=== PATIENT | male | born 1945 | race Caucasian/White ===

== ENCOUNTER 2023-11-07 11:17 | Outpatient (RCR) | payer MEDICARE, SELFPAY | END 2023-11-07 23:59 | disposition home or self-care (01) | LOC: CRHB 11:17 | PROVIDERS: ATTENDING PHYSICIAN Internal Medicine Cardiovascular Disease | DX: I25.10 Atherosclerotic heart disease of native coronary artery without angina pectoris (principal); Z95.5 Presence of coronary angioplasty implant and graft; I25.2 Old myocardial infarction | CPT/HCPCS: G0422; G0423 ==

== ENCOUNTER → 2023-11-12 15:59 | Outpatient (REF) | payer MEDICARE, SELFPAY | LOC: DHCBS HW 15:59 | PROVIDERS: ATTENDING PHYSICIAN Internal Medicine Cardiovascular Disease; FAMILY PHYSICIAN Family Medicine | DX: I25.10 Atherosclerotic heart disease of native coronary artery without angina pectoris (principal) | CPT/HCPCS: 93306 ==

== ENCOUNTER 2023-11-30 10:11 | Outpatient (RCR) | payer MEDICARE, SELFPAY | END 2023-11-30 23:59 | disposition home or self-care (01) | LOC: CRHB 10:11 | PROVIDERS: ATTENDING PHYSICIAN Internal Medicine Cardiovascular Disease; FAMILY PHYSICIAN Family Medicine | DX: I25.10 Atherosclerotic heart disease of native coronary artery without angina pectoris (principal); I25.2 Old myocardial infarction; Z95.5 Presence of coronary angioplasty implant and graft | CPT/HCPCS: G0422; G0423 ==

== ENCOUNTER 2024-03-20 18:50 | Emergency (ER) | payer MEDICARE, SELFPAY ==
[2024-03-20 18:50] VITALS: BMI 22.7
[2024-03-20 18:55] VITALS: BP 137/70
[2024-03-20 20:08] VITALS: BP 148/72
[2024-03-20 20:29] LABS: % Basophils 0.7 % (0-2); % Eosinophils 2.3 % (0-6); % Immature Granulocytes 0.1 % (0-0.5); % Lymphocytes 14.8 % (20.5-51.1); % Monocytes 9.7 % (1.7-9.3); % Neutrophils 72.4 % (42.2-75.2); Absolute Basophils 0.1 10^3/uL (0-0.2); Absolute Eosinophils 0.2 10^3/uL (0-0.7); Absolute Lymphocytes 1.4 10^3/uL (1.2-3.4); Absolute Monocytes 0.9 10^3/uL (0.1-0.6); Absolute Neutrophils 6.6 10^3/uL (1.4-6.5); Hematocrit 42.6 % (39.0-52.0); Mean Corp Hgb Conc. 35.2 g/dL (33.0-37.0); Mean Corpuscular Hgb 31.8 pg (27.0-31.0); Mean Corpuscular Volume 90.3 fL (80.0-94.0); Mean Platelet Volume 10.1 fL (7.4-10.4); Nucleated Red Blood Cells % 0 % (-); Platelet Count 208 10^3/uL (130-400); Red Blood Cell Count 4.72 10^6/uL (4.70-6.10); Red Cell Dist. Width 12.5 % (11.5-14.5); White Blood Cell Count 9.2 10^3/uL (4.8-10.8)
[2024-03-20 20:48] LABS: ALT (SGPT) 24 U/L (0-50); AST (SGOT) 33 U/L (17-59); Albumin 4.7 g/dl (3.5-5.0); Alkaline Phosphatase 73 U/L (38-126); Blood Urea Nitrogen 21 mg/dl (9-20); Calcium 9.8 mg/dl (8.4-10.2); Carbon Dioxide 25 mmol/L (22-30); Chloride 104 mmol/L (98-107); Estimated Creatinine Clearance 59 ml/min; Glucose 94 mg/dl (70-99); Sodium 136 mmol/L (135-145); Total Bilirubin 0.6 mg/dl (0.2-1.3); Total Protein 7.3 g/dl (6.3-8.2); eGFR > 60.00
[2024-03-20 21:00] VITALS: BP 130/78
--- NOTE | 2024-03-20 21:57 | ED.GENMED ---
History of Present Illness
General
Chief Complaint: Headache
Source: patient
Exam Limitations: none
Time Seen by Provider: 03/20/24 21:38
Travel History
Have you had any contact with someone who has COVID-19?: No
Do you have any symptoms of coronavirus? Fever > 100 degrees, chills, cough, shortness of breath, sore throat, loss of taste or smell, muscle aches, or headache?: No
History of Present Illness
History of Present Illness:
This is a 78 year old male that comes in with c/o headache. States that on Sunday night he awoke with this cramp pain in the left arm. State that every time he would stretch the arm out it would pull right back. States that it was like a cramp.
States that he got up to the [place] and the cramp went away. State that he had no muscle soreness in the morning and the cramp or pain has never returned. State that he has a left sided headache that goes form the forehead to the left sided of the head
in the front and he has pressure feeling in the eye. States that this has been going on since Sunday. States that at first he thought is was his sinuses as he was in [place] and the pollen there was terrible. States that this cleared up after he
got home and he has been using his [place] pot. States that the pain from his head goes down to the left ear like he has an ear ache and when he opens his jaw he feels this discomfort. States that the headache pain has been constand but the Intensity
changes. Denies any fever, chills, chest pain, SOB, abd pain, nausea, vomiting, diarrhea, dizziness, urinary burning.
Past History
Past History
ED Past Medical History: Arrthythmia (a fib), CAD, Cancer (Basal cell), HTN and [place]
ED Past Surgical History: Appendectomy, Cardiac (Stents X 2), Orthopedic (Right rotator cuff, Back surgery, ), Tonsilectomy, Urological (Spermatocele) and Other (right femural artery repair)
Social History
Tobacco: Former smoker
Alcohol: None
Personal:
Living: with family
Review of Systems
Review of Systems
All Other Systems: ROS reviewed and negative except as documented in HPI and ROS
Constitutional: Reports no symptoms; Denies fever or chills
EENT: Reports no symptoms
Respiratory: Reports no symptoms; Denies cough or trouble breathing
Cardiac: Reports no symptoms; Denies chest pain
ABD/GI: Reports no symptoms; Denies abdominal pain, nausea, vomiting or diarrhea
: Reports no symptoms; Denies dysuria, frequency or urgency
Musculoskeletal: Reports other (left arm pain that has not returned since Sunday. )
Skin: Reports no symptoms
Neurological: Reports headache; Denies dizzy
Psychiatric: Reports no symptoms
Phy Exam
General Physical Exam
General Presentation: well appearing and no apparent distress
General age: appears stated age
General Skin: warm and dry
General Habitus: normal
General Mental: alert
General Hydration: appears well hydrated
ENT Exam
ENT Exam: TM's normal, pharynx normal and neck supple
Eye Exam
Eye Exam: EOMI
Cardiovascular Exam
Cardiovascular Exam: regular rate/rhythm, no edema and normal peripheral pulses
Pulmonary Exam
Pulmonary Exam: lungs clear, no respiratory distress, no rales, chest non tender, no crackles, no rhonchi, no wheezing and no cough
Gastrointestinal Exam
Gastrointestinal Exam: normal bowel sounds, non tender, soft, no organomegaly, no pulsatile mass and non distended
Musculoskeletal Exam
Musculoskeletal Exam: full ROM, no edema and other (Hand grasp equal)
Skin Exam
Skin Exam: normal color, warm/dry, no rash and no petechia
Psychiatric Exam
Psychiatric Exam: normal mood/affect
Course
Orders/Labs/Results
Orders:
Orders
03/20/24 20:21
C-Reactive Protein Urgent
Comment: ADD ON
CBC/With Diff [Complete Blood Count/With Diff] Urgent
CMP [Comprehensive Metabolic Panel] Urgent
Erythrocyte Sed Rate Urgent
Comment: ADD ON
03/20/24 21:55
Electrocardiogram (*1) Urgent
Reason for Study: Other
Other Reason for Exam: LEFT ARM PAIN
CT Head W/o Iv Contrast Urgent
Comment:
Reason For Exam: lEFT HEAD PAIN
EKG- Treatment ONCE
0.9% Sodium Chloride 1000 ml [Nss] 1,000 ml IV BOLUS
Acetaminophen [Tylenol] 1,000 mg PO NOW STA
Dexamethasone Sod Phosphate [Decadron] 20 mg IV NOW STA
03/20/24 22:06
Add On- LAB Urgent
Tests Added?: Sed rate, CRP
03/20/24 22:15
Troponin I Urgent
Abnormal Lab Results
03/20/24
20:21
MCH 31.8 H pg
(27.0-31.0)
Absolute Neuts (auto) 6.6 H 10^3/uL
(1.4-6.5)
Absolute Monos (auto) 0.9 H 10^3/uL
(0.1-0.6)
Lymphocytes % 14.8 L %
(20.5-51.1)
Monocytes % 9.7 H %
(1.7-9.3)
BUN 21 H mg/dl
(9-20)
03/20/24 20:21
03/20/24 20:21
Dehydration. sed rate normal at 13, Troponin <0.012, CRP normal <5.0
Vital Signs
Initial and Last Documented VS:
Initial Vital Signs
Temp Pulse Resp BP Pulse Ox
98.2 F 67 18 137/70 98
03/20/24 18:55 03/20/24 18:55 03/20/24 18:55 03/20/24 18:55 03/20/24 18:55
Last Documented Vital Signs
Temp Pulse Resp BP Pulse Ox
98.2 F 67 18 130/78 98
03/20/24 18:55 03/20/24 18:55 03/20/24 18:55 03/20/24 21:00 03/20/24 21:00
MDM/Problems Addressed
Differential Diagnosis Includes:
Headache, Temporal arteritis,
MDM/Problems Addressed:
This is a 78 year old male that comes in with c/o left sided headache. state that on Sunday night he had left arm cramp. States that this went away and he has had a headache since Sunday.
will get labs , CT head and give IV fluids with pain medication for headache pain.
back into see patient. States that right know he was feeling Ok but his headache comes and goes. explained that his blood work shows that he was dehydrated. Patient to increase his water intake to 8-8oz glasses daily. Explained that his Inflammatory
markers are normal along with the CT scan. Patient has an appointment with the PCP tomorrow. Patient to return with any concerns.
Chronic conditions affecting care: CAD
Acute Exacerbation and/or Progression of Chronic Illness:
NA
*Radiology
Radiology exam reviewed: radiology read reviewed (CT head-No acute intracranial abnormality. )
*Pulse Oximetry
Patient hypoxic: no
*EKG
Interpreted by ED Provider?: Yes
Heart Rate: 59
Rate: bradycardiac
Rhythm: sinus and PAC's
[place]: left axis deviation
Interval: normal interval
QRS Pattern: normal QRS
Ischemia: no ischemia
*[employer] Interpretation
Rate: normal
Heart Rate: 60
Rhythm: sinus
*Critical Care Note
Total Time (30-74mins, 75-104mins- exclusive of procedures): Not Applicable
ED Attending Note
-
Portions of this chart may have been created with voice recognition software.� Occasional wrong word or��sound alike� substitutions may have occurred due to the inherent limitations of voice recognition software.
Discharge Plan
Departure
Patient Disposition: Home (Routine Discharge)
Date of Disposition: 03/20/24
Time of Disposition: 23:22
Patient with high blood pressure during this ER visit?: Yes
Condition: Good
Covid-19: Not Applicable
Discharge Problem:
Headache
Instructions: Headache, Adult (DC), BLOOD PRESSURE
Prescriptions:
No Action
magnesium oxide 500 MG capsule
500 mg PO DAILY
cholecalciferol (vitamin D3) 2,000 UNITS tablet
4,000 unit PO DAILY
Xarelto 20 MG tablet
20 mg PO HS
multivitamin Tablet
1 tab PO DAILY
sildenafil 50 mg tablet
50 mg PO DAILY PRN (Reason: ed)
metoprolol succinate 50 mg tablet extended release 24 hr
50 mg PO HS
cyanocobalamin (vitamin B-12) [Vitamin B-12] 1,000 mcg Tablet
1,000 mcg PO DAILY
Fish Oil
1 tab PO DAILY
lysine
1 tab PO DAILY
diphenhydramine HCl [Benadryl] 25 mg Capsule
25 mg HS
Patient Comments:
PRN for sleep
Brilinta 90 mg Tablet
90 mg PO BID Qty: 60 0RF
ezetimibe [Zetia] 10 mg tablet
10 mg PO DAILY Qty: 30 11RF
Referrals:
Sunday Baker MD [Family Provider] - Tomorrow
Activity Restrictions/Additional Instructions:
As discussed, our blood work shows slight Dehydration. Your Inflammatory markers are normal along with our Troponin. Your CT of the head is normal. You have been given IV steroids here. This will stay in your system for a few days. Please follow up
with the family doctor tomorrow as scheduled. Please increase your water intake to 8-8oz glasses daily. You may also use Tylenol 1000mg every 6 hours for headache pain. IF YOU HAVE ANY OTHER CONCERNS PLEASE RETURN TO THE EMERGENCY ROOM
Interventions
Interventions:
*Risk Screen - Suicide Last Done: 03/20/24 21:48
*General Assessment Last Done: 03/20/24 21:23
*Neglect/Abuse Screening Last Done: 03/20/24 21:48
*ED COVID-19 Vaccine History Last Done: 03/20/24 21:23
ED- Neurological Assessment Last Done: 03/20/24 21:17
Discharge Date and Time
Print Language: BENGALI
[2024-03-20 22:00] VITALS: BP 142/73
[2024-03-20] MEDS: TYLENOL 1000 MG PO (22:13)
[2024-03-20] MEDS: NSS 1000 IV (22:13)
[2024-03-20] MEDS: DECADRON 20 MG IV (22:14)
[2024-03-20 22:18] LABS: Erythrocyte Sed Rate 13 mm/hour (0-20)
[2024-03-20 22:46] LABS: C-Reactive Protein < 5.00 mg/L (0.0-10.00)
[2024-03-20 22:54] LABS: Troponin I < 0.012 ng/ml
[2024-03-20 23:00] VITALS: BP 140/73
== END 2024-03-20 23:46 | disposition home or self-care (01) ==
LOC: EMR 18:50
PROVIDERS: Clinical Nurse Specialist Family Health; EMERGENCY PHYSICIAN Emergency Medicine; FAMILY PHYSICIAN Family Medicine
DX: R51.9 Headache, unspecified (principal); M79.602 Pain in left arm; I48.91 Unspecified atrial fibrillation; I25.10 Atherosclerotic heart disease of native coronary artery without angina pectoris; I10 Essential (primary) hypertension; M19.90 Unspecified osteoarthritis, unspecified site; I25.2 Old myocardial infarction; Z95.5 Presence of coronary angioplasty implant and graft; Z85.828 Personal history of other malignant neoplasm of skin; Z87.891 Personal history of nicotine dependence
CPT/HCPCS: 99284; 96374; 96361; 70450; 80053; 84484; 85025; 85652; 86140; 93005

== ENCOUNTER 2024-03-23 17:35 | Emergency (ER) | payer MEDICARE, SELFPAY ==
[2024-03-23 17:40] VITALS: BP 126/77
[2024-03-23] MEDS: ZOVIRAX 800 MG PO ×2 (18:38)
--- NOTE | 2024-03-23 23:09 | ED.SKININJ ---
HPI-Injury
General
Chief Complaint: Skin Problem
Source: patient and spouse
Exam Limitations: none
Time Seen by Provider: 03/23/24 17:43
Nursing documentation reviewed up to this point in time: agreed with
Travel History
Have you had any contact with someone who has COVID-19?: No
Do you have any symptoms of coronavirus? Fever > 100 degrees, chills, cough, shortness of breath, sore throat, loss of taste or smell, muscle aches, or headache?: No
History of Present Illness-Injury
Is this injury a work related problem?: No
Is pt an associate of [facility]?: No
Initial Injury comments:
Patient to ED with cmoplaint of painful rash to left forehead, left upper eyelid, left parietal scalp. States he was seen in ED on for headache. States he was having pain on lefft side of scalp at that time but did not develope rash
until this AM. Brought to ED by spouse for eval. No fever/chills. No prior history of same.
Past History
Past History
ED Past Medical History: Arrthythmia (a fib), CAD, Cancer (Basal cell), HTN and [place]
ED Past Surgical History: Appendectomy, Cardiac (Stents X 2), Orthopedic (Right rotator cuff, Back surgery, ), Tonsilectomy, Urological (Spermatocele) and Other (right femural artery repair)
Social History
Tobacco: Former smoker
Alcohol: None
Personal:
Living: with family
Review of Systems
Review of Systems
Allergies reviewed?: Yes
All Other Systems: ROS reviewed and negative except as documented in HPI and ROS
Constitutional: Reports no symptoms
EENT: Reports no symptoms
Respiratory: Reports no symptoms
Cardiac: Reports no symptoms
ABD/GI: Reports no symptoms
Musculoskeletal: Reports no symptoms
Skin: Reports other (Painful vesicular rash to left forehead, left parietal scalp, left upper eyelid)
Neurological: Reports no symptoms
Psychiatric: Reports no symptoms
Phy Exam
General Physical Exam
General Presentation: well appearing and mild distress
General age: appears stated age
General Skin: warm and dry
General Habitus: normal
General Mental: alert
ENT Exam
ENT Exam: TM's normal
Eye Exam
Eye Exam: PERRL, EOMI, cornea clear, conjunctiva normal and other (mild edema to upper and lower eyelids. Vesicular rash to upper eyelid.)
Eye Exam General: PERRL: bilateral and EOM intact: bilateral
Conjunctival Changes: bilateral: none
Eyelid Exam: edematous: Left
Type of Exam: slit lamp (No corneal defect noted.), simple and fluorescein
Musculoskeletal Exam
Musculoskeletal Exam: full ROM and neuro vasc intact
Skin Exam
Skin Exam: warm/dry and other (Painful vesicular rash to left forehead left parietal scalp, left upper eyelid consistent with herpes zoster)
Psychiatric Exam
Psychiatric Exam: normal mood/affect
Course
Orders/Labs/Results
Orders:
Orders
03/23/24 18:04
Acyclovir [Zovirax] 800 mg PO NOW STA
03/23/24 18:11
Acyclovir [Zovirax] 800 mg PO NOW STA
Vital Signs
Initial and Last Documented VS:
Initial Vital Signs
Temp Pulse Resp BP Pulse Ox
98.6 F 74 18 126/77 97
03/23/24 17:40 03/23/24 17:40 03/23/24 17:40 03/23/24 17:40 03/23/24 17:40
Last Documented Vital Signs
Temp Pulse Resp BP Pulse Ox
98.6 F 74 18 126/77 97
03/23/24 17:40 03/23/24 17:40 03/23/24 17:40 03/23/24 17:40 03/23/24 17:40
*Critical Care Note
Total Time (30-74mins, 75-104mins- exclusive of procedures): Not Applicable
Update Note
Update Note:
No evidence of corneal involvement at this time. Dr. Marie consulted via tiger text. No ophthalmic medications indicated at this time. He will follow up in office tomorrow withophthalmolgy for recheck. Acyclovir po started in dept.
ED Attending Note
-
Portions of this chart may have been created with voice recognition software.� Occasional wrong word or��sound alike� substitutions may have occurred due to the inherent limitations of voice recognition software.
Discharge Plan
Departure
Patient Disposition: Home (Routine Discharge)
Date of Disposition: 03/23/24
Time of Disposition: 18:05
Patient with high blood pressure during this ER visit?: No
Condition: Good
Covid-19: Not Applicable
Discharge Problem:
Herpes zoster
Instructions: Shingles
Prescriptions:
New
acyclovir 800 mg tablet
800 mg PO 5/D 7 Days Qty: 35 0RF
Rx Instructions:
Take one tablet by mouth 5 times daily.
No Action
magnesium oxide 500 MG capsule
500 mg PO DAILY
cholecalciferol (vitamin D3) 2,000 UNITS tablet
4,000 unit PO DAILY
Xarelto 20 MG tablet
20 mg PO HS
multivitamin Tablet
1 tab PO DAILY
sildenafil 50 mg tablet
50 mg PO DAILY PRN (Reason: ed)
metoprolol succinate 50 mg tablet extended release 24 hr
50 mg PO HS
cyanocobalamin (vitamin B-12) [Vitamin B-12] 1,000 mcg Tablet
1,000 mcg PO DAILY
Fish Oil
1 tab PO DAILY
lysine
1 tab PO DAILY
diphenhydramine HCl [Benadryl] 25 mg Capsule
25 mg HS
Patient Comments:
PRN for sleep
Brilinta 90 mg Tablet
90 mg PO BID Qty: 60 0RF
ezetimibe [Zetia] 10 mg tablet
10 mg PO DAILY Qty: 30 11RF
Referrals:
Sunday Baker MD [Family Provider] -
Suzi Marie MD [Active] - Tomorrow
Activity Restrictions/Additional Instructions:
Follow up with ophthalmology tomorrow.
Interventions
Interventions:
*Risk Screen - Suicide Last Done: 03/23/24 18:49
*General Assessment Last Done: 03/23/24 18:49
*Neglect/Abuse Screening Last Done: 03/23/24 18:49
ED- Fall Risk Assessment Last Done: 03/23/24 18:49
*ED COVID-19 Vaccine History Last Done: 03/23/24 18:49
*Nursing Disposition Last Done: 03/23/24 18:49
ED-Skin Assessment Last Done: 03/23/24 18:49
Discharge Date and Time
Discharge Date/Time: 03/23/24 18:50
Print Language: BENGALI
== END 2024-03-23 18:50 | disposition home or self-care (01) ==
LOC: EMR 17:35
PROVIDERS: EMERGENCY PHYSICIAN Emergency Medicine; FAMILY PHYSICIAN Family Medicine
DX: B02.9 Zoster without complications (principal); I48.91 Unspecified atrial fibrillation; I25.10 Atherosclerotic heart disease of native coronary artery without angina pectoris; I10 Essential (primary) hypertension; I25.2 Old myocardial infarction; Z95.5 Presence of coronary angioplasty implant and graft; Z85.828 Personal history of other malignant neoplasm of skin; Z87.891 Personal history of nicotine dependence; Z79.01 Long term (current) use of anticoagulants; Z88.1 Allergy status to other antibiotic agents; Z88.0 Allergy status to penicillin; Z88.8 Allergy status to other drugs, medicaments and biological substances
CPT/HCPCS: 99283

== ENCOUNTER 2024-12-12 13:47 | Observation (INO) | payer MEDICARE, SELFPAY ==
[2024-12-12] VITALS (11 sets, daily range): BP systolic 111–148; BP diastolic 62–79; PULSE 59–61; BMI 25.1; BMI 21.9
--- NOTE | 2024-12-12 09:54 | ED.GENMED ---
History of Present Illness
General
Chief Complaint: Dizziness
Time Seen by Provider: 12/12/24 09:44
History of Present Illness
History of Present Illness:
Patient is a 79-year-old man with history of hypertension, hyperlipidemia, CAD status post stents presenting to the emergency department with dizziness. Patient states that he woke up at 7:30 AM when he felt off balance. 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 However today he was having balance problems especially when walking. He had to hold onto the wall to help him walk. He denies any lightheadedness dizziness. He did not feel as if he was going
to pass out. This is never happened to him before. No room spinning sensation. Since that morning symptoms have improved slightly. He did have to use a wheelchair to get back to the room that he is currently in.
Past History
Past History
ED Past Medical History: Arrthythmia (a fib), CAD, Cancer (Basal cell), HTN and [place]
ED Past Surgical History: Appendectomy, Cardiac (Stents X 2), Orthopedic (Right rotator cuff, Back surgery, ), Tonsilectomy, Urological (Spermatocele) and Other (right femural artery repair)
Social History
Tobacco: Former smoker
Alcohol: None
Personal:
Living: with family
Phy Exam
Physical Exam
Physical Exam:
GENERAL: in no acute distress
HEENT: normocephalic, extraocular movements intact, moist oral mucosa
NECK: normal inspection
RESPIRATORY: no respiratory distress, clear to auscultation bilaterally
CARDIOVASCULAR: regular rate and rhythm
ABDOMEN/: soft, non-distended, non-tender to palpation, no rebound or guarding
EXTREMITIES: non-tender, no edema/swelling
NEUROLOGIC: alert and oriented x 3, cranial nerves II-XII intact, right upper extremity strength 5/5, left upper extremity strength 5/5, right lower extremity strength 5/5, left lower extremity strength 5/5, normal sensation to light touch, normal
[id number] and [id number], gait not tested formally
SKIN: warm
Scores
NIH Stroke Score
Level of Consciousness: 0 - Alert
LOC Questions: 0-Answers both correctly
LOC Commands: 0-Performs both correctly
Best Horizontal Gaze: 0-Normal
Visual Cobb: 0=Normal, no visual loss
Facial Palsy: 0=Normal, symmetrical
Motor - Right Arm: 0=No drift 10 seconds
Motor - Left Arm: 0=No drift 10 seconds
Motor - Right Le-No drift 5 seconds
Motor - Left Le-No drift 5 seconds
Limb Ataxia: 0-Absent
Sensation: 0-Normal
Best Language: 0-No aphasia
Dysarthria: 0-Normal
Extinction and Inattention: 0-No abnormality
Total Score:: 0
Course
Orders/Labs/Results
Orders:
Orders
12/12/24 09:33
EKG [Electrocardiogram (*1)] Urgent
Reason for Study: Vertigo / Dizzy
EKG- Treatment ONCE
12/12/24 09:54
CT Head W/o Iv Contrast Urgent
Comment:
Reason For Exam: balance problems
12/12/24 10:35
Complete Blood Count/With Diff Urgent
Comprehensive Metabolic Panel Urgent
Troponin I Urgent
12/12/24 11:03
Urinalysis Reflex To Culture Urgent
Date Specimen was Collected: 12/12/24
Time Specimen was Collected: 11:01
12/12/24 13:30
Troponin I Urgent
Abnormal Lab Results
12/12/24
10:35
RBC 4.38 L 10^6/uL
(4.70-6.10)
MCH 31.7 H pg
(27.0-31.0)
Absolute Monos (auto) 0.8 H 10^3/uL
(0.1-0.6)
Lymphocytes % 19.0 L %
(20.5-51.1)
Monocytes % 11.7 H %
(1.7-9.3)
Total Protein 5.9 L g/dl
(6.3-8.2)
12/12/24 10:35
12/12/24 10:35
Vital Signs
Initial and Last Documented VS:
Initial Vital Signs
Temp Pulse Resp BP Pulse Ox
97.6 F 57 16 122/79 99
12/12/24 09:31 12/12/24 09:31 12/12/24 09:31 12/12/24 09:31 12/12/24 09:31
Last Documented Vital Signs
Temp Pulse Resp BP Pulse Ox
97.6 F 54 17 133/71 98
12/12/24 09:31 12/12/24 11:45 12/12/24 11:45 12/12/24 10:00 12/12/24 11:45
MDM/Problems Addressed
Differential Diagnosis Includes:
Patient is a 79-year-old male with history of CAD status post stent, hypertension, hyperlipidemia presenting to the emergency department with balance problems since this morning. Patient's last known normal was 7:30 AM. On exam patient has no
neurodeficits. Differential consist of TIA versus CVA versus metabolic derangement. Will check blood work EKG and urine. EKG per my interpretation sinus bradycardia with occasional PAC. Will also obtain CT scan of the head.
*Critical Care Note
Total Time (30-74mins, 75-104mins- exclusive of procedures): Not Applicable
Update Note
Update Note:
CT scan of the head per my interpretation with no obvious hemorrhage or ischemic infarct. Blood work unremarkable. On reevaluation patient states the symptoms has resolved. He was able to ambulate without any problems. Given that the symptoms
resolved I did discuss with neurology to see if they could evaluate patient.
They evaluated patient and recommended medical admission for telemetry monitoring and possible cardiac evaluation. Discussed with hospitalist who accepted patient to their service
ED Attending Note
-
Portions of this chart may have been created with voice recognition software.� Occasional wrong word or��sound alike� substitutions may have occurred due to the inherent limitations of voice recognition software.
Discharge Plan
Departure
Patient Disposition: Admit
Date of Disposition: 12/12/24
Time of Disposition: 12:50
Presentation/result/management discussed w/ accepting MD/DO: Hospitalist
Discharge Problem:
Balance problem
Prescriptions:
No Action
magnesium oxide 500 MG capsule
500 mg PO DAILY
cholecalciferol (vitamin D3) 2,000 UNITS tablet
4,000 unit PO DAILY
Xarelto 20 MG tablet
20 mg PO HS
multivitamin Tablet
1 tab PO DAILY
sildenafil 50 mg tablet
50 mg PO DAILY PRN (Reason: ed)
metoprolol succinate 50 mg tablet extended release 24 hr
50 mg PO HS
cyanocobalamin (vitamin B-12) [Vitamin B-12] 1,000 mcg Tablet
1,000 mcg PO DAILY
Fish Oil
1 tab PO DAILY
lysine
1 tab PO DAILY
diphenhydramine HCl [Benadryl] 25 mg Capsule
25 mg HS
Patient Comments:
PRN for sleep
Brilinta 90 mg Tablet
90 mg PO BID Qty: 60 0RF
ezetimibe [Zetia] 10 mg tablet
10 mg PO DAILY Qty: 30 11RF
acyclovir 800 mg tablet
800 mg PO 5/D 7 Days Qty: 35 0RF
Rx Instructions:
Take one tablet by mouth 5 times daily.
Referrals:
Sunday Baker MD [Family Provider] -
Interventions
Interventions:
*Risk Screen - Suicide Last Done: 12/12/24 09:31
*General Assessment Last Done: 12/12/24 09:31
*Neglect/Abuse Screening Last Done: 12/12/24 10:57
*ED COVID-19 Vaccine History Last Done: 12/12/24 09:31
ED- Neurological Assessment Last Done: 12/12/24 10:57
Discharge Date and Time
Print Language: GUINEAN
[2024-12-12 10:48] LABS: % Basophils 0.8 % (0-2); % Eosinophils 3.7 % (0-6); % Immature Granulocytes 0.3 % (0-0.5); % Monocytes 11.7 % (1.7-9.3); % Neutrophils 64.5 % (42.2-75.2); Absolute Basophils 0.1 10^3/uL (0-0.2); Absolute Eosinophils 0.2 10^3/uL (0-0.7); Absolute Lymphocytes 1.2 10^3/uL (1.2-3.4); Absolute Monocytes 0.8 10^3/uL (0.1-0.6); Absolute Neutrophils 4.2 10^3/uL (1.4-6.5); Hematocrit 39.5 % (39.0-52.0); Hemoglobin 13.9 g/dL (13.0-18.0); Mean Corp Hgb Conc. 35.2 g/dL (33.0-37.0); Mean Corpuscular Hgb 31.7 pg (27.0-31.0); Mean Corpuscular Volume 90.2 fL (80.0-94.0); Mean Platelet Volume 10.1 fL (7.4-10.4); Nucleated Red Blood Cells % 0 % (-); Platelet Count 178 10^3/uL (130-400); Red Blood Cell Count 4.38 10^6/uL (4.70-6.10); Red Cell Dist. Width 12.8 % (11.5-14.5); White Blood Cell Count 6.5 10^3/uL (4.8-10.8)
[2024-12-12 11:04] LABS: ALT (SGPT) 20 U/L (0-50); AST (SGOT) 24 U/L (17-59); Albumin 3.8 g/dl (3.5-5.0); Alkaline Phosphatase 60 U/L (38-126); Blood Urea Nitrogen 15 mg/dl (9-20); Calcium 9.3 mg/dl (8.4-10.2); Carbon Dioxide 25 mmol/L (22-30); Chloride 106 mmol/L (98-107); Estimated Creatinine Clearance 59 ml/min; Glucose 95 mg/dl (70-99); Potassium 4.3 mmol/L (3.5-5.1); Sodium 137 mmol/L (135-145); Total Bilirubin 0.8 mg/dl (0.2-1.3); Total Protein 5.9 g/dl (6.3-8.2); eGFR > 60.00
[2024-12-12 11:11] LABS: Troponin I < 0.012 ng/ml
[2024-12-12 11:41] LABS: Urine Albumin Negative (Neg - Trace); Urine Bilirubin Negative (Negative); Urine Character Clear (Clear); Urine Color Yellow; Urine Glucose Negative (Negative); Urine Ketone Negative (Negative); Urine Leukocyte Negative (Negative); Urine Nitrite Negative (Negative); Urine Occult Blood Negative (Negative); Urine Urobilinogen Negative (Neg - 1+)
--- NOTE | 2024-12-12 12:57 | CON.NEURO ---
Consultation
Order
Date of Consultation: 12/12/24
Requesting Provider: Jacob Santana MD
Reason for Consult: Imbalance
Neurology Consultation Note.
HPI: This is a 79-year-old right-handed man who presented to [facility] on with transient imbalance.
The patient reports waking up feeling fine this morning, but upon going to the bathroom, experienced a sense of unsteadiness after he got up and went to bathroom. The imbalance was lasting approximately 15-20 minutes. He denies vertigo or
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 The episode began around 7:30 AM and was accompanied by slight nausea that quickly subsided. He denies any changes in vision, strength,
paresthesia or headache. There was no associated chest discomfort or palpitations.
The patient notes that he had not yet taken his morning medications, but had taken his evening doses of metoprolol, Xarelto, and baby aspirin.
The patient reports chronic tinnitus, predominantly in the right ear. He denies any history of vertigo.
ER VS: 122/79, 57�54, afebrile
EKG: Sinus bradycardia at 58,QTc Int : 400 ms
PDMP: No recently prescribed medication
Labs: Normal glucose, sodium, creatinine�1.1, hemoglobin.
CT head wo contrast-Minimal patchy mucosal thickening in the ethmoid sinuses. Minimal mucosal thickening of the anterior left sphenoid sinus.
PMH: PA A-fib, CAD, HTN, DLP, vitamin D, B12 deficiency, right lumbar radiculopathy, BCC
PSH: PTCI(2009 and 2022)), right rotator cuff repair, lumbar discectomy (2019), tonsillectomy, appendectomy, spermatocele excision, Femoral artery repair
SH: , independent in AIDLs, former smoker.
FH: Father�coronary artery disease
All: Plavix, penicillins, erythromycin,
ROS: Constitutional: Negative. Negative for chills, fever and unexpected weight change.
HENT: Positive for chronic right greater than left tinnitus
Eyes: Negative. Negative for photophobia, pain and visual disturbance.
Respiratory: Negative for cough, choking and shortness of breath.
Cardiovascular: Negative for chest pain, palpitations and leg swelling.
Gastrointestinal: Negative for abdominal pain and vomiting.
Endocrine: Negative. Negative for cold intolerance.
Genitourinary: Negative for dysuria, flank pain and urgency. usculoskeletal: Negative for back pain, gait problem, neck pain and neck stiffness.
Skin: Negative for rash.
Allergic/Immunologic: Negative. Negative for immunocompromised state.
Neurological: Positive for transient imbalance
Psychiatric/Behavioral: Negative for behavioral problems, confusion and hallucinations.
General: Well developed. In no acute distress.
Cardio: Regular rate and rhythm without murmur. Extremities are without cyanosis or edema.
Neuro:
Mental Status: Alert, oriented to person, place, and date. Normal attention and recall. Good fund of knowledge. Follows complex requests across the midline. Comprehension, naming, and repetition intact. Immediate and delayed recall 3/3.
Cranial Nerves: Pupils are equally round and reactive to light. EOMs full. Visual love full to confrontation. No ptosis. No nystagmus. V1-V3 intact to light touch and pinprick bilaterally, symmetric. Face symmetric. Normal hearing AU. The
palate elevated well. SCMs and traps 5/5. Tongue midline. No dysarthria.
Motor: Normal bulk and tone. No pronator or arm drift. Strength 5/5 throughout. No clonus.
Reflexes: 2+ throughout the upper extremities and knees. Plantar responses flexor bilaterally.
Sensory: Normal vibration and JPS.
Coordination: No dysmetria or tremor.
Gait: deferred
Assessment and Plan:
I. Transient imbalance. Neuroexam is nonfocal. Likely peripheral vertigo given transient nausea
II. Sinus bradycardia
III. Sinus disease with chronic tinnitus
IV, PA A-Fib
-Continue Telemetry monitoring
-Fall precautions
-Please obtain orthostatic vital signs
-Continuing Xarelto
-PT
-ENT, cardiology consults
-DVT prophylaxis.
I personally reviewed all radiology and labs along with past medical records pertinent to current medical problems. Total time spent in patient care is 60 minutes.
Thank you for allowing us to participate in the care of this patient. We will continue to follow. Please do not hesitate to contact us with any questions or concerns.
Subjective/Objective
Subjective Data
Date of Service: December 12, 2024
Objective Data
Vital Signs
Temp Pulse Resp BP Pulse Ox
36.4 C 54 17 133/71 98
12/12/24 09:31 12/12/24 11:45 12/12/24 11:45 12/12/24 10:00 12/12/24 11:45
Lab Results
12/12/24 10:35
12/12/24 10:35
Sodium 137 mmol/L (135-145) 12/12/24 10:35
Potassium 4.3 mmol/L (3.5-5.1) 12/12/24 10:35
BUN 15 mg/dl (9-20) 12/12/24 10:35
Glucose 95 mg/dl (70-99) 12/12/24 10:35
Calcium 9.3 mg/dl (8.4-10.2) 12/12/24 10:35
Patient Allergies
clopidogrel [From Plavix] Allergy (Verified 12/12/24 09:33)
Unknown
erythromycin base Allergy (Verified 12/12/24 09:33)
Unknown
Penicillins Allergy (Verified 12/12/24 09:33)
Unknown
Medications
-
Home Medications
�Medication �Instructions �Recorded
cholecalciferol (vitamin D3) 50 4,000 unit PO DAILY Supplement 07/09/18
mcg (2,000 unit) tablet
magnesium oxide 500 mg capsule 500 mg PO DAILY Supplement 07/09/18
rivaroxaban 20 mg tablet (Xarelto) 20 mg PO HS Blood Clot 07/09/18
Prevention/Tx
Fish Oil 1 tab PO DAILY Supplement 07/23/23
cyanocobalamin (vitamin B-12) 1,000 mcg PO DAILY Supplement 07/23/23
1,000 mcg tablet (Vitamin B-12)
diphenhydramine HCl 25 mg capsule 25 mg HS Sleep 07/23/23
(Benadryl)
lysine 1 tab PO DAILY Supplement 07/23/23
metoprolol succinate 50 mg 50 mg PO HS Blood Pressure 07/23/23
tablet,extended release 24 hr
multivitamin 1 tab PO DAILY Supplement 07/23/23
sildenafil 50 mg tablet 50 mg PO DAILY PRN ed 07/23/23
ezetimibe 10 mg tablet (Zetia) 10 mg PO DAILY High cholesterol 07/26/23
#30 tabs
ticagrelor 90 mg tablet (Brilinta) 90 mg PO BID Heart 07/26/23
disease/condition #60 tabs
acyclovir 800 mg tablet 800 mg PO 5/D 7 days #35 tabs 03/23/24
Vital Signs and Labs
-
Vital Signs and Labs:
Vital Signs
Temp Pulse Resp BP Pulse Ox
36.4 C 54 17 133/71 98
12/12/24 09:31 12/12/24 11:45 12/12/24 11:45 12/12/24 10:00 12/12/24 11:45
Lab Results
12/12/24 10:35
12/12/24 10:35
Sodium 137 mmol/L (135-145) 12/12/24 10:35
Potassium 4.3 mmol/L (3.5-5.1) 12/12/24 10:35
BUN 15 mg/dl (9-20) 12/12/24 10:35
Glucose 95 mg/dl (70-99) 12/12/24 10:35
Calcium 9.3 mg/dl (8.4-10.2) 12/12/24 10:35
Home Medications
-
Home Medications
cholecalciferol (vitamin D3) 50 mcg (2,000 unit) tablet 4,000 unit PO DAILY Supplement 07/09/18
magnesium oxide 500 mg capsule 500 mg PO DAILY Supplement 07/09/18
rivaroxaban 20 mg tablet (Xarelto) 20 mg PO HS Blood Clot Prevention/Tx 07/09/18
Fish Oil 1 tab PO DAILY Supplement 07/23/23
cyanocobalamin (vitamin B-12) 1,000 mcg tablet (Vitamin B-12) 1,000 mcg PO DAILY Supplement 07/23/23
diphenhydramine HCl 25 mg capsule (Benadryl) 25 mg HS Sleep 07/23/23
lysine 1 tab PO DAILY Supplement 07/23/23
metoprolol succinate 50 mg tablet,extended release 24 hr 50 mg PO HS Blood Pressure 07/23/23
multivitamin 1 tab PO DAILY Supplement 07/23/23
sildenafil 50 mg tablet 50 mg PO DAILY PRN ed 07/23/23
ezetimibe 10 mg tablet (Zetia) 10 mg PO DAILY High cholesterol #30 tabs 07/26/23
ticagrelor 90 mg tablet (Brilinta) 90 mg PO BID Heart disease/condition #60 tabs 07/26/23
acyclovir 800 mg tablet 800 mg PO 5/D 7 days #35 tabs 03/23/24
--- NOTE | 2024-12-12 13:13 | HPS.HSE ---
Family Physician
-
Family Physician: Sunday Baker MD
Chief Complaint
-
Balance Difficulty
History of Present Illness
Patient is a 79 y/o male past medical history of CAD, A-fib, HTN, and Hyperlipidemia who presents with balance difficulty. Patient reports he got out of bed this morning and walked to the bathroom. While he was standing urinating he began having
difficulty with his balance. He describes his body feeling very heavy. He states symptoms lasted for a few minutes and started to improve, but he didn't feel quit back to normal until after reaching the emergency department. He reports feeling
slightly nauseous during the event. He denies vertigo, lightheadedness or sensation he was going to pass out. He denies focal numbness, tingling or weakness.
Medical History
Past Medical History
Past Medical History: Reports Other
Additional Past Medical History:
Coronary Artery Disease s/p Stents
Paroxysmal Atrial Fibrillation
Essential Hypertension
Hyperlipidemia
Osteoarthritis
Past Surgical History: Reports Other
Additional Past Surgical History:
Cardiac Stent
PVI
Rotator Cuff
Right Femoral Artery Repair
Back Surgery
Spermatocele
Appendectomy
Tonsillectomy
Social History
Tobacco: Former Smoker (Quit about 50 years ago)
Alcohol: None
Drug: Marijuana (Daily)
Family History
Family History: Not pertinent
Allergies / Home Medications
Allergies reflects when Allergies were last updated in [employer] [facility].
Home Medications with original date entered in [employer] [facility]
Allergy/Medication List:
Allergies
Allergy/AdvReac Type Severity Reaction Status Date / Time
clopidogrel [From Plavix] Allergy Unknown Verified 12/12/24 09:33
erythromycin base Allergy Unknown Verified 12/12/24 09:33
Penicillins Allergy Unknown Verified 12/12/24 09:33
Home Medications
cholecalciferol (vitamin D3) 50 mcg (2,000 unit) tablet 4,000 unit PO DAILY Supplement 07/09/18
magnesium oxide 500 mg capsule 500 mg PO DAILY Supplement 07/09/18
rivaroxaban 20 mg tablet (Xarelto) 20 mg PO HS Blood Clot Prevention/Tx 07/09/18
cyanocobalamin (vitamin B-12) 1,000 mcg tablet (Vitamin B-12) 1,000 mcg PO DAILY Supplement 07/23/23
diphenhydramine HCl 25 mg capsule (Benadryl) 25 mg PO HS Sleep 07/23/23
lysine 1 tab PO DAILY Supplement 07/23/23
metoprolol succinate 50 mg tablet,extended release 24 hr 50 mg PO HS Blood Pressure 07/23/23
multivitamin 1 tab PO DAILY Supplement 07/23/23
ezetimibe 10 mg tablet (Zetia) 10 mg PO DAILY High cholesterol #30 tabs 07/26/23
aspirin 81 mg tablet,delayed release 81 mg PO HS 12/12/24
Review of Systems
-
A 12 point ROS was completed and negative except as noted: Yes
Constitutional: Denies Fever or Chills
Respiratory: Denies Cough or Trouble Breathing
Cardiac: Denies Chest Pain or Palpitations
Abdomen/GI: Reports Nausea (Slight nausea during event); Denies Abdominal Pain, Vomiting or Diarrhea
Physical Exam
Vital Signs
Vital Signs
Temp Pulse Resp BP Pulse Ox
97.6 F 54 17 133/71 98
12/12/24 09:31 12/12/24 11:45 12/12/24 11:45 12/12/24 10:00 12/12/24 11:45
Physical Exam
General: Comfortable and Conversant
HEENT: Anicteric and Moist mucous membranes
Respiratory: Clear and Non Labored Respirations
Cardiac: S1/S2 and Regular Rhythm (Heart Rate running in the mid 50s to low 60s)
GI: Soft and Non Tender
Musculoskeletal: No Clubbing, No Cyanosis and No Edema
Skin: Warm and Dry
Neuro: Awake, Alert, Oriented, No Motor Deficits and Other (Intact finger to nose)
Laboratory Results
-
12/12/24 10:35
12/12/24 10:35
Laboratory Results
Total Bilirubin 0.8 mg/dl (0.2-1.3) 12/12/24 10:35
AST 24 U/L (17-59) 12/12/24 10:35
ALT 20 U/L (0-50) 12/12/24 10:35
Alkaline Phosphatase 60 U/L (38-126) 12/12/24 10:35
Troponin I < 0.012 ng/ml 12/12/24 10:35
Data Reviewed
-
CT Scan: Report Reviewed by me
Lab Data: Labs Reviewed by me
Impression/Plan
-
Balance Difficulty, possibly BPPV vs orthostasis vs TIA/CVA vs Cardiac
-Consult Neurology
-Check Brain MRI
-Check Orthostatic VS
-Monitor on Telemetry
-Consider Cardiology consult
Coronary Artery Disease s/p Stents
-Continue aspirin
Paroxysmal Atrial Fibrillation
-Continue Xarelto
-Decrease Metoprolol dose from 50mg to 25mg due to slightly low heart rate
Essential Hypertension
-Continue metoprolol at decrease dose as above
Hyperlipidemia
-Continue Zetia
DVT proph: Xarelto
Code Status: Full Code
[2024-12-12 13:46] LABS: Troponin I < 0.012 ng/ml
--- NOTE | 2024-12-12 14:47 | W.PN.UPDATE ---
Update Note
Progress Note Update
This is an addendum to the H&P written by Beba Samaniego on 12/12/2024.� Patient seen and examined independently with PA.
79-year-old male past medical history of paroxysmal atrial fibrillation on Xarelto, hypertension, hyperlipidemia, CAD status post stents in 2022, pseudogout, chronic right ear tinnitus, presenting with transient imbalance this morning without
dizziness, vertigo, sweating, shortness of breath, chest pain or any neurological symptoms.� Patient feels tired now with no other symptoms currently.
In August Brilinta was switched to aspirin.
Neurological examination unremarkable.
EKG shows sinus bradycardia with premature atrial complexes.
Heart rate in the 50s.�
Likely this could be benign positional vertigo, versus rule out CVA versus less likely cardiac etiology.� Doubt that mild bradycardia secondary to metoprolol is contributing.� Check orthostatic vital signs.� Check MRI brain.� Telemetry monitoring.�
Continue Xarelto and aspirin.� Reduce metoprolol from 50 to 25 mg.� Consider cardiology consult.�
[2024-12-12] MEDS: TOPROL XL 25 MG PO (21:07)
[2024-12-12] MEDS: XARELTO 20 MG PO (21:07)
[2024-12-12] MEDS: ASPIR LOW (ENTERIC COATED) 81 MG PO (21:07)
[2024-12-12] MEDS: BENADRYL 25 MG PO (21:09)
[2024-12-13 03:38] VITALS: BP 113/67
[2024-12-13 06:00] VITALS: BMI 22.0
[2024-12-13 07:06] LABS: HDL Cholesterol 32 mg/dl; LDL Cholesterol, Calculated 86 mg/dl; Total Cholesterol 131 mg/dl (50-199); Triglyceride 69 mg/dl (10-149); Very Low Density Lipoprotein 13 mg/dl (0-30)
[2024-12-13 07:14] VITALS: BP 138/74
[2024-12-13 07:15] VITALS: BP 137/73; BP 138/74; BP 138/81; PULSE 60; PULSE 63
--- NOTE | 2024-12-13 07:43 | W.PN.NEURO.1 ---
Today's Communication / Plan
-
.
Subjective/Objective
Subjective Data
Date of Service: December 13, 2024
Neurology follow-up note.
Mr. Herman reports no complaints. No recurrent episodes of imbalance or new motor, sensory visual symptoms.
Brain MRI is pending.
PMH: PA A-fib, CAD, HTN, DLP, vitamin D, B12 deficiency, right lumbar radiculopathy, BCC
PSH: PTCI(2009 and 2022)), right rotator cuff repair, lumbar discectomy (2019), tonsillectomy, appendectomy, spermatocele excision, Femoral artery repair
SH: , independent in AIDLs, former smoker.
FH: Father�coronary artery disease
All: Plavix, penicillins, erythromycin,
ROS: Constitutional: Negative. Negative for chills, fever and unexpected weight change.
HENT: Positive for chronic right greater than left tinnitus
Eyes: Negative. Negative for photophobia, pain and visual disturbance.
Respiratory: Negative for cough, choking and shortness of breath.
Cardiovascular: Negative for chest pain, palpitations and leg swelling.
Gastrointestinal: Negative for abdominal pain and vomiting.
Endocrine: Negative. Negative for cold intolerance.
Genitourinary: Negative for dysuria, flank pain and urgency.
Musculoskeletal: Negative for back pain, gait problem, neck pain and neck stiffness.
Skin: Negative for rash.
Allergic/Immunologic: Negative. Negative for immunocompromised state.
Neurological: Positive for transient imbalance
Psychiatric/Behavioral: Negative for behavioral problems, confusion and hallucinations.
General: Well developed. In no acute distress.
Cardio: Regular rate and rhythm without murmur. Extremities are without cyanosis or edema.
Neuro:
Mental Status: Alert, oriented to person, place, and date. Normal attention and recall. Good fund of knowledge. Follows complex requests across the midline. Comprehension, naming, and repetition intact. Immediate and delayed recall 3/3.
Cranial Nerves: Pupils are equally round and reactive to light. EOMs full. Visual love full to confrontation. No ptosis. No nystagmus. V1-V3 intact to light touch and pinprick bilaterally, symmetric. Face symmetric. Normal hearing AU. The
palate elevated well. SCMs and traps 5/5. Tongue midline. No dysarthria.
Motor: Normal bulk and tone. No pronator or arm drift. Strength 5/5 throughout. No clonus.
Reflexes: 2+ throughout the upper extremities and knees. Plantar responses flexor bilaterally.
Sensory: Normal vibration and JPS.
Coordination: No dysmetria or tremor.
Gait: deferred
Assessment and Plan:
I. Transient imbalance. Neuroexam is nonfocal. Likely peripheral vertigo given transient nausea
II. Sinus bradycardia
III. Sinus disease with chronic tinnitus
IV., PA A-Fib
-Continue Telemetry monitoring
-Fall precautions
-Continuing Xarelto
-PT
-ENT, cardiology consults
-Please recall neurology in case of acute findings on brain MRI.
-DVT prophylaxis.
I personally reviewed all radiology and labs along with past medical records pertinent to current medical problems. Total time spent in patient care is 37 minutes.
Thank you for allowing us to participate in the care of this patient. Please do not hesitate to contact us with any questions or concerns.
Objective Data
Vital Signs
Temp Pulse Resp BP Pulse Ox
36.8 C 57 18 113/67 98
12/13/24 03:38 12/13/24 03:38 12/13/24 03:38 12/13/24 03:38 12/13/24 03:38
Lab Results
12/13/24 07:25
12/13/24 07:25
Sodium Cancelled 12/13/24 07:25
Potassium Cancelled 12/13/24 07:25
BUN Cancelled 12/13/24 07:25
Glucose Cancelled 12/13/24 07:25
Calcium Cancelled 12/13/24 07:25
LDL Cholesterol, Calc 86 mg/dl 12/13/24 06:13
Patient Allergies
clopidogrel [From Plavix] Allergy (Verified 12/12/24 09:33)
Unknown
erythromycin base Allergy (Verified 12/12/24 09:33)
Unknown
Penicillins Allergy (Verified 12/12/24 09:33)
Unknown
Vital Signs and Labs
-
Vital Signs and Labs:
Vital Signs
Temp Pulse Resp BP Pulse Ox
36.4 C 63 20 138/74 99
12/13/24 07:14 12/13/24 07:14 12/13/24 07:14 12/13/24 07:14 12/13/24 07:14
Lab Results
12/13/24 07:25
12/13/24 07:25
Sodium Cancelled 12/13/24 07:25
Potassium Cancelled 12/13/24 07:25
BUN Cancelled 12/13/24 07:25
Glucose Cancelled 12/13/24 07:25
Calcium Cancelled 12/13/24 07:25
LDL Cholesterol, Calc 86 mg/dl 12/13/24 06:13
Medications
-
Medications:
Generic Name Dose Route Start Last Admin
Trade Name Freq PRN Reason Stop Dose Admin
Acetaminophen 650 mg 12/12/24 15:57
Acetaminophen 325 Mg Tablet PO 01/09/25 15:56
Q4HPRN PRN
mild pain/ fever>100.5F
Aspirin 81 mg 12/12/24 22:00 12/12/24 21:07
Aspirin 81 Mg (Enteric Coated) Tablet PO 01/09/25 21:59 81 mg
HS PAULIE Administration
Diphenhydramine HCl 25 mg 12/12/24 15:57 12/12/24 21:09
Diphenhydramine 25 Mg Capsule PO 01/09/25 15:56 25 mg
HSPRN PRN Administration
sleep
Ezetimibe 10 mg 12/13/24 08:00 12/13/24 09:01
Ezetimibe (Zetia) 10 Mg Tablet PO 01/10/25 07:59 10 mg
DAILY PAULIE Administration
Metoprolol Succinate 25 mg 12/12/24 22:00 12/12/24 21:07
Metoprolol 25 Mg Extended Release Tablet PO 01/09/25 21:59 25 mg
HS PAULIE Administration
Rivaroxaban 20 mg 12/12/24 22:00 12/12/24 21:07
Rivaroxaban 20 Mg Tablet PO 01/09/25 21:59 20 mg
HS PAULIE Administration
Sodium Chloride 0 flush 12/12/24 16:00 12/13/24 09:02
Sodium Chloride 0.9% (Flush) Syringe IV 01/09/25 15:59 1 flush
PER PROTOCOL PAULIE Administration
Home Medications
-
Home Medications
cholecalciferol (vitamin D3) 50 mcg (2,000 unit) tablet 4,000 unit PO DAILY Supplement 07/09/18
magnesium oxide 500 mg capsule 500 mg PO DAILY Supplement 07/09/18
rivaroxaban 20 mg tablet (Xarelto) 20 mg PO HS Blood Clot Prevention/Tx 07/09/18
cyanocobalamin (vitamin B-12) 1,000 mcg tablet (Vitamin B-12) 1,000 mcg PO DAILY Supplement 07/23/23
diphenhydramine HCl 25 mg capsule (Benadryl) 25 mg PO HS Sleep 07/23/23
lysine 1 tab PO DAILY Supplement 07/23/23
metoprolol succinate 50 mg tablet,extended release 24 hr 50 mg PO HS Blood Pressure 07/23/23
multivitamin 1 tab PO DAILY Supplement 07/23/23
ezetimibe 10 mg tablet (Zetia) 10 mg PO DAILY High cholesterol #30 tabs 07/26/23
aspirin 81 mg tablet,delayed release 81 mg PO HS 12/12/24
[2024-12-13 07:58] LABS: Blood Urea Nitrogen 21 mg/dl (9-20); Carbon Dioxide 22 mmol/L (22-30); Chloride 108 mmol/L (98-107); Estimated Creatinine Clearance 56 ml/min; Glucose 94 mg/dl (70-99); Potassium 4.1 mmol/L (3.5-5.1); Sodium 137 mmol/L (135-145); eGFR > 60.00
[2024-12-13 08:35] LABS: % Basophils 0.8 % (0-2); % Eosinophils 3.5 % (0-6); % Immature Granulocytes 0.1 % (0-0.5); % Lymphocytes 19.6 % (20.5-51.1); % Monocytes 11.4 % (1.7-9.3); % Neutrophils 64.6 % (42.2-75.2); Absolute Basophils 0.1 10^3/uL (0-0.2); Absolute Eosinophils 0.3 10^3/uL (0-0.7); Absolute Lymphocytes 1.4 10^3/uL (1.2-3.4); Absolute Monocytes 0.8 10^3/uL (0.1-0.6); Absolute Neutrophils 4.6 10^3/uL (1.4-6.5); Hematocrit 37.5 % (39.0-52.0); Hemoglobin 13.3 g/dL (13.0-18.0); Mean Corp Hgb Conc. 35.5 g/dL (33.0-37.0); Mean Corpuscular Hgb 31.8 pg (27.0-31.0); Mean Corpuscular Volume 89.7 fL (80.0-94.0); Mean Platelet Volume 10.8 fL (7.4-10.4); Nucleated Red Blood Cells % 0 % (-); Platelet Count 173 10^3/uL (130-400); Red Blood Cell Count 4.18 10^6/uL (4.70-6.10); Red Cell Dist. Width 12.7 % (11.5-14.5); White Blood Cell Count 7.2 10^3/uL (4.8-10.8)
[2024-12-13] MEDS: ZETIA 10 MG PO (09:01)
[2024-12-13] MEDS: FLUSH (NSS) 1 FLUSH IV (09:02)
--- NOTE | 2024-12-13 09:07 | W.PN.HOSP.TC ---
Addendum entered and electronically signed by Mandi Galaviz MD 12/13/24 15:11:
I saw and evaluated the patient. I reviewed the resident�s note and agree with findings and plan as documented in the resident�s note except for changes in my documentation
79-year-old with difficulty in balance. Patient also has mild changes just in the right ear
Head CT-no evidence of acute intracranial changes
EKG reviewed by me-sinus bradycardia rate 58 PACs
On examination no nystagmus noted no. Dizziness has resolved
Cardiovascular system S1-S2 appreciated
Chest clear to auscultation
Abdomen soft and nontender
Neuroexam nonfocal
# Dizziness/difficulty with balance differentials include
Orthostasis/BPPV versus cardiac/TIA/CVA
Orthostatic vital negative
MRI of the brain neg
Neurology consulted
# Coronary disease with history of stents-continue aspirin, Zetia
# Paroxysmal atrial fibrillation-history of PVI in 2017 -continue Xarelto. Decrease dose of metoprolol secondary to mild bradycardia
# Hypertension-continue metoprolol at 25 mg/day instead of 50 mg/day
# Hyperlipidemia-continue Zetia
# Ex-smoker
# DVT prophylaxis-Xarelto
# Full code
Discussed about cardiology and ENT outpatient appointments
I have texted [facility] cardiology appointment line.
Original Note:
Today's Communication/Plan
-
Decrease metoprolol
MRI
Monitor telemetry
Discharge planning
Assessment / Plan
Assessment / Plan
79-year-old male with PMH of HTN, HLD, chronic tinnitus, CAD s/p cardiac stents who presented to the hospital after an episode of feeling off balance at home while urinating. Episode lasted for about 20 minutes and subsided [employer]. Denies
lightheadedness, did not pass out, denies headache, palpitations, urinary symptoms, fever, headaches or chills. He did not take his metoprolol before this episode
Assessment/plan
#Transient imbalance
-Nutrition presyncope vs BPPV
-Symptoms resolved [employer], no recurrence in the hospital.
-Orthostatic vital signs.
-Fall precautions.
-Advised to sit immediately if symptoms occurs while urinating to prevent falls, do not stand up too quickly from a sitting position.
-Neurology appreciated.
-Brain MRI normal.
-Continue to monitor on telemetry.
-Eventually outpatient cardiology and ENT follow-up.
-PT/OT.
#Sinus bradycardia
-Most likely contributed to the above.
-Decreased metoprolol from 50 mg to 25 mg PO HS
-Follow-up with cardiology.
#Paroxysmal A-fib
-Continue Xarelto and metoprolol.
#CAD
-Continue aspirin
#Essential hypertension
-Continue metoprolol.
-Follow BP.
#Hyperlipidemia
-Continue ezetimibe
DVT PPx: Xarelto
CODE STATUS: Full code
Anticipated Discharge: Today
Subjective/Interval History
-
Date of Service: December 13, 2024
I saw and evaluated patient lying in bed in no acute cardiopulmonary distress. He reports feeling better today, no symptoms of dizziness, vertigo, lightheadedness, chest pain, palpitations, fever, or chills. He denies abdominal pain, nausea,
vomiting, diarrhea, urinary symptoms.
Objective Data
-
Labs:
Laboratory Results
12/13/24 12/13/24
06:13 07:25
WBC 7.2 Cancelled
Hgb 13.3 Cancelled
Hct 37.5 L Cancelled
Plt Count 173 Cancelled
Sodium 137 Cancelled
Potassium 4.1 Cancelled
Chloride 108 H Cancelled
Carbon Dioxide 22 Cancelled
BUN 21 H Cancelled
Creatinine 1.1 Cancelled
Glucose 94 Cancelled
Calcium 9.0 Cancelled
Vital Signs:
Vital Signs
Temp Pulse Resp BP Pulse Ox
98.3 F 57 18 113/67 98
12/13/24 03:38 12/13/24 03:38 12/13/24 03:38 12/13/24 03:38 12/13/24 03:38
Review of Systems
-
History Source: Patient
All other systems: Reviewed and negative
Physical Exam
-
General: No Apparent Distress, Comfortable and Conversant
Respiratory: Clear to Auscultation and Non Labored Respirations; Negative Wheezes or Crackles
Cardiac: Regular Rhythm and S1/S2; Negative Murmur or Rub
GI: Soft, Nontender, Nondistended and Normal Bowel Sounds
Musculoskeletal: No Clubbing
Skin: Warm and Dry; Negative Rash
Neuro: Awake and AO x 3
Psych: Calm
Data Reviewed
-
CT Scan: Image personally visualized and interpreted, Report Reviewed by me, Discussed with Physician and Discussed with Patient
Labs: Labs Reviewed by me, Discussed with Physician and Discussed with Patient
Old Records: Reviewed
[2024-12-13 09:56] LABS: Glycohemoglobin (HgbA1c) 5.5 % (4.0-5.6)
--- NOTE | 2024-12-13 10:49 | W.DCSUMMARY ---
Addendum entered and electronically signed by Mandi Galaviz MD 12/15/24 08:38:
Read, reviewed, and agree. See same day progress note for additional details. Time spent coordinating care, DC planning, review of DC plan of care with resident, transition of care, review of records in EMR, med rec, consults, notes, d/w
consultants, nursing, family,
Original Note:
Discharge Summary
Discharge Data
Date of Admission: 12/12/24
Date of Discharge: 12/13/24
-
Pending Results: No
Hospital Course
Discharging Physician : Mandi Galaviz MD ; Erick Archuleta MD
Disposition : Home
Primary care physician : Sunday Baker MD
Principal Discharge diagnosis :
Transient imbalance
Sinus bradycardia
Paroxysmal A-fib
CAD
Essential hypertension
Hyperlipidemia
Hospital Course :
Transient imbalance: Patient presented to the hospital after an episode of feeling off balance at home while urinating. He stated that the episode lasted about 20 minutes and subsided WHAR[employer] HEAD. While in the hospital, he was evaluated by neurology.
His head CT and brain MRI were both negative. Patient was observed overnight and is medically stable for discharge.
Sinus bradycardia: While in the ED, his EKG reported sinus bradycardia with premature atrial complexes. Due to the fact that this could be contributing to his new symptoms, his metoprolol was reduced from 50 mg to 25 mg at night. Patient has been
instructed to follow-up with his investigation clerk for further adjustment of his medications.:
Discharge Plan
-
Patient Disposition: Home (Routine Discharge)
Discharge Diagnosis/Procedures: Transient imbalance
Sinus bradycardia
Paroxysmal A-fib
CAD
Essential hypertension
Hyperlipidemia
Condition: Good
Diet: Low Fat and 2 Gram Sodium
Activity: No restrictions and As tolerated
Driving Restrictions: Do not drive until symptoms are completely resol
Bathing Restrictions: None
Activity Restrictions/Additional Instructions:
Follow-up with your investigation clerk and also ENT doctor if symptoms come back
Referrals:
Sunday Baker MD [Family Provider] - in less than 1 week
Nino South MD [Active] -
Graeme Kapadia MD [Active] -
Additional Discharge Medication Instructions: Take metoprolol 25 mg once daily at night. Your 50 mg metoprolol has been stopped. If you still have supply left, you can break them into 2 and take half every night.
Prescriptions:
New
metoprolol succinate 25 mg Tablet Extended Release 24 Hr
25 mg PO HS Qty: 30 0RF
Continued
magnesium oxide 500 MG capsule
500 mg PO DAILY
cholecalciferol (vitamin D3) 2,000 UNITS tablet
4,000 unit PO DAILY
Xarelto 20 MG tablet
20 mg PO HS
multivitamin Tablet
1 tab PO DAILY
cyanocobalamin (vitamin B-12) [Vitamin B-12] 1,000 mcg Tablet
1,000 mcg PO DAILY
lysine
1 tab PO DAILY
diphenhydramine HCl [Benadryl] 25 mg Capsule
25 mg PO HS
Patient Comments:
PRN for sleep
ezetimibe [Zetia] 10 mg tablet
10 mg PO DAILY Qty: 30 11RF
aspirin 81 mg Tablet,Delayed Release (Dr/Ec)
81 mg PO HS
Discontinued
metoprolol succinate 50 mg tablet extended release 24 hr
50 mg PO HS
Discharge Orders:
Discharge Patient (As Directed); Ordered 12/13/24
Ordered By: Mandi Galaviz
Discharge Date and Time
Print Language: MALTESE
[2024-12-13 11:27] VITALS: BP 140/66
--- NOTE | 2024-12-13 14:26 | CM ---
Initial assessment completed with pt at the bedside.
Pt is a 79yr old male admitted on Obs with Balance Difficulties.
At baseline, pt lives with his sig other in a 2 level home with 0 steps to enter.
Pt is indep at baseline and driving.
Pt has no equipment or hx of VN/SNF.
PCP; Sunday Baker
Pharm; [facility] [address] [place] [address]
PLAN; dc to home with no needs.
[2024-12-13 15:04] VITALS: BP 169/85
== END 2024-12-13 16:05 | disposition home or self-care (01) ==
LOC: 4 EAST ACU 13:47
PROVIDERS: Emergency Medicine; Physician Assistant Medical; Student in an Organized Health Care Education/Training Program; ADMITTING PHYSICIAN Hospitalist; ATTENDING PHYSICIAN Hospitalist; CONSULT PHYSICIAN Psychiatry & Neurology Neurology; EMERGENCY PHYSICIAN Student in an Organized Health Care Education/Training Program; FAMILY PHYSICIAN Family Medicine
DX: H81.399 Other peripheral vertigo, unspecified ear (principal); I10 Essential (primary) hypertension; E78.5 Hyperlipidemia, unspecified; Z95.5 Presence of coronary angioplasty implant and graft; I25.10 Atherosclerotic heart disease of native coronary artery without angina pectoris; R26.89 Other abnormalities of gait and mobility; Z87.891 Personal history of nicotine dependence; H93.11 Tinnitus, right ear; R00.1 Bradycardia, unspecified; R11.0 Nausea; I48.0 Paroxysmal atrial fibrillation; Z79.01 Long term (current) use of anticoagulants; Z79.82 Long term (current) use of aspirin; I49.1 Atrial premature depolarization; Z79.02 Long term (current) use of antithrombotics/antiplatelets; Z82.49 Family history of ischemic heart disease and other diseases of the circulatory system
CPT/HCPCS: 70450; 70551; 80048; 80053; 80061; 81003; 83036; 84484; 85025; 93005; 99285; G0378

== ENCOUNTER 2025-07-26 12:43 | Emergency (ER) | payer MEDICARE, SELFPAY ==
[2025-07-26 12:48] VITALS: BP 144/75
[2025-07-26 13:41] LABS: Hematocrit 38.1 % (39.0-52.0); Hemoglobin 13.2 g/dL (13.0-18.0); Mean Corp Hgb Conc. 34.6 g/dL (33.0-37.0); Mean Corpuscular Volume 89.6 fL (80.0-94.0); Nucleated Red Blood Cells % 0 % (-); Platelet Count 181 10^3/uL (130-400); Red Cell Dist. Width 12.6 % (11.5-14.5)
--- NOTE | 2025-07-26 13:55 | ED.GENMED ---
History of Present Illness
General
Chief Complaint: Chest Pain
Source: patient
Exam Limitations: none
Time Seen by Provider: 07/26/25 13:31
Nursing documentation reviewed up to this point in time: agreed with
History of Present Illness
History of Present Illness:
79-year-old male with history of A-fib on aspirin and Xarelto, CAD, HTN, HLD, cardiac stents 2009, 2022, right femoral artery repair, appendectomy, back surgery presents for chest pain. While walking around yard at 12:15, got sudden onset mid non
radiating chest pain. went inside, rested and drank water, it subsided for 5 minutes then came back and lasted 10 minutes and subsided again. On the way here it occurred again but has not occurred since arrival. No associated symptoms such as
n/v/sweating, SOB. Pain was 4/10, 'pressure.' No aggravating factors
Past History
Past History
ED Past Medical History: Arrthythmia (a fib), CAD, Cancer (Basal cell), HTN and OR
ED Past Surgical History: Appendectomy, Cardiac (Stents X 2 2009, stent LAD 2022), Orthopedic (Right rotator cuff, Back surgery, ), Tonsilectomy, Urological (Spermatocele) and Other (right femural artery repair)
Social History
Tobacco: Former smoker
Alcohol: None
Personal:
Living: with family
Employment: Retired
Review of Systems
Review of Systems
Allergies reviewed?: Yes
All Other Systems: ROS reviewed and negative except as documented in HPI and ROS
Phy Exam
Physical Exam
Physical Exam:
GENERAL: No acute distress. A&Ox3.
CONSTITUTIONAL: Afebrile.
EYES: clear, conjunctivae normal
ENMT: moist mucus membranes, Pharynx nl
RESPIRATORY: Regular respirations, nonlabored, lungs clear.
CARDIOVASCULAR: Regular rate and rhythm, no murmurs, no rubs.
GI: Soft, nontender, normal BS
MUSCULOSKELETAL: Moves with ease. Well perfused. Unable to reproduce pain with palpation.
SKIN: Warm, dry, pink
PSYCH: Normal mood and affect. Well kept, interactive and appropriate
NEUROLOGIC: Awake, alert and oriented. No focal neurological deficits
Scores
Heart Score for Chest Pain Patients
STEMI patient?: Not applicable
Course
Orders/Labs/Results
Orders:
Orders
07/26/25 12:43
EKG [Electrocardiogram (*1)] Urgent
Reason for Study: Chest Pain
EKG- Treatment ONCE
07/26/25 13:25
Complete Blood Count/With Diff Urgent
Comprehensive Metabolic Panel Urgent
Troponin I Urgent
07/26/25 16:23
Troponin I Urgent
Abnormal Lab Results
07/26/25
13:25
RBC 4.25 L 10^6/uL
(4.70-6.10)
Hct 38.1 L %
(39.0-52.0)
MCH 31.1 H pg
(27.0-31.0)
MPV 10.5 H fL
(7.4-10.4)
Absolute Lymphs (auto) 1.1 L 10^3/uL
(1.2-3.4)
Absolute Monos (auto) 0.8 H 10^3/uL
(0.1-0.6)
Lymphocytes % 16.9 L %
(20.5-51.1)
Monocytes % 12.7 H %
(1.7-9.3)
BUN 22 H mg/dl
(9-20)
Total Protein 6.2 L g/dl
(6.3-8.2)
07/26/25 13:25
07/26/25 13:25
Vital Signs
Initial and Last Documented VS:
Initial Vital Signs
Temp Pulse Resp BP Pulse Ox
97.8 F 77 18 144/75 98
07/26/25 12:48 07/26/25 12:48 07/26/25 12:48 07/26/25 12:48 07/26/25 12:48
Last Documented Vital Signs
Temp Pulse Resp BP Pulse Ox
97.8 F 72 17 131/69 98
07/26/25 12:48 07/26/25 17:00 07/26/25 17:00 07/26/25 17:09 07/26/25 17:00
MDM/Problems Addressed
Differential Diagnosis Includes:
angina, OR, musculoskeletal pain
MDM/Problems Addressed:
79-year-old male with history of A-fib on aspirin and Xarelto, CAD, HTN, HLD, cardiac stents 2009, 2022, right femoral artery repair, appendectomy, back surgery presents for chest pain. While walking around yard at 12:15, got sudden onset mid non
radiating chest pain. went inside, rested and drank water, it subsided for 5 minutes then came back and lasted 10 minutes and subsided again. On the way here it occurred again but has not occurred since arrival. No associated symptoms such as
n/v/sweating, SOB.
EKG NSR
CBC unremarkable
CMP with no clinically significant abnormality
Troponin 0.012
5:00 p.m.
Troponin #2 0.012
Pt has had no further chest pain, stable for discharge.
Chronic conditions affecting care: HTN, CAD and Arrhythmia
*Pulse Oximetry
SaO2: 96
Oxygen Mode of Delivery: Room air
Patient hypoxic: no
*EKG
EKG Intrepretation Date: 07/26/25
Interpretation: normal
Heart Rate: 73
Rate: normal
Rhythm: sinus
Davis: normal axis
Interval: normal interval
QRS Pattern: normal QRS
Ischemia: no ischemia
*Critical Care Note
Total Time (30-74mins, 75-104mins- exclusive of procedures): Not Applicable
ED Attending Note
-
Portions of this chart may have been created with voice recognition software.� Occasional wrong word or��sound alike� substitutions may have occurred due to the inherent limitations of voice recognition software.
Discharge Plan
Departure
Patient Disposition: Home (Routine Discharge)
Date of Disposition: 07/26/25
Time of Disposition: 17:05
Patient with high blood pressure during this ER visit?: No
Condition: Good
Discharge Problem:
Atypical chest pain
Instructions: Chest Pain That Is Not Caused by the Heart (DC)
Prescriptions:
No Action
magnesium oxide 500 MG capsule
500 mg PO DAILY
cholecalciferol (vitamin D3) 2,000 UNITS tablet
4,000 unit PO DAILY
Xarelto 20 MG tablet
20 mg PO HS
multivitamin Tablet
1 tab PO DAILY
cyanocobalamin (vitamin B-12) [Vitamin B-12] 1,000 mcg Tablet
1,000 mcg PO DAILY
lysine
1 tab PO DAILY
diphenhydramine HCl [Benadryl] 25 mg Capsule
25 mg PO HS
Patient Comments:
PRN for sleep
ezetimibe [Zetia] 10 mg tablet
10 mg PO DAILY Qty: 30 11RF
aspirin 81 mg Tablet,Delayed Release (Dr/Ec)
81 mg PO HS
metoprolol succinate 25 mg Tablet Extended Release 24 Hr
25 mg PO HS Qty: 30 0RF
Referrals:
Nino South MD [Active, Cardiology] - As needed
UNKNOWN - PT DOES,NOT KNOW [Family Provider]
Activity Restrictions/Additional Instructions:
As we discussed, nothing worrisome in your workup here today, specifically no indication of damage to your heart or heart attack.
If you continue to have intermittent chest pain contact Dr. South's office and make a follow-up appointment.
Return here immediately for worsening chest pain, chest pain associated with trouble breathing, breaking out in a sweat, nausea or vomiting, feeling faint or dizzy or feeling worse in any way.
Interventions
Interventions:
*Risk Screen - Suicide Last Done: 07/26/25 12:48
*General Assessment Last Done: 07/26/25 12:48
*Neglect/Abuse Screening Last Done: 07/26/25 13:16
*ED- Fall Risk Assessment Last Done: 07/26/25 13:16
*ED COVID-19 Vaccine History Last Done: 07/26/25 13:16
*ED Influenza Vaccine History Last Done: 07/26/25 13:16
*Nursing Disposition Last Done: 07/26/25 17:10
ED- Cardiac Assessment Last Done: 07/26/25 13:16
Discharge Date and Time
Discharge Date/Time: 07/26/25 17:10
Print Language: DIVEHI
[2025-07-26 13:59] LABS: Troponin I < 0.012 ng/ml
[2025-07-26 14:06] LABS: ALT (SGPT) 21 U/L (0-50); AST (SGOT) 24 U/L (17-59); Albumin 4.0 g/dl (3.5-5.0); Alkaline Phosphatase 52 U/L (38-126); Blood Urea Nitrogen 22 mg/dl (9-20); Calcium 8.8 mg/dl (8.4-10.2); Carbon Dioxide 23 mmol/L (22-30); Chloride 107 mmol/L (98-107); Glucose 97 mg/dl (70-99); Potassium 3.9 mmol/L (3.5-5.1); Sodium 136 mmol/L (135-145); Total Protein 6.2 g/dl (6.3-8.2); eGFR > 60.00
[2025-07-26 14:45] VITALS: BP 127/73
[2025-07-26 15:00] VITALS: BP 133/88
[2025-07-26 16:54] LABS: Troponin I < 0.012 ng/ml
[2025-07-26 17:09] VITALS: BP 131/69
== END 2025-07-26 17:10 | disposition home or self-care (01) ==
LOC: EMR 12:43
PROVIDERS: Registered Nurse; EMERGENCY PHYSICIAN Emergency Medicine
DX: R07.89 Other chest pain (principal); I48.91 Unspecified atrial fibrillation; I25.10 Atherosclerotic heart disease of native coronary artery without angina pectoris; I10 Essential (primary) hypertension; E78.00 Pure hypercholesterolemia, unspecified; I25.2 Old myocardial infarction; Z79.01 Long term (current) use of anticoagulants; Z87.891 Personal history of nicotine dependence; Z90.49 Acquired absence of other specified parts of digestive tract; Z95.5 Presence of coronary angioplasty implant and graft
CPT/HCPCS: 99283; 80053; 84484; 85025; 93005

== ENCOUNTER 2025-08-07 06:22 | Day surgery (SDC) | payer MEDICARE, SELFPAY | END 2025-08-07 11:06 | disposition home or self-care (01) | LOC: GI 06:22 | PROVIDERS: ATTENDING PHYSICIAN Student in an Organized Health Care Education/Training Program | DX: R13.10 Dysphagia, unspecified (principal); R12 Heartburn; K44.9 Diaphragmatic hernia without obstruction or gangrene; K31.7 Polyp of stomach and duodenum; R63.4 Abnormal weight loss; K22.89 Other specified disease of esophagus; K29.50 Unspecified chronic gastritis without bleeding; K22.70 Barrett's esophagus without dysplasia | CPT/HCPCS: 43251; 43239; 88305 ==

== ENCOUNTER 2025-09-29 23:14 | Observation (INO) | payer MEDICARE, SELFPAY ==
[2025-09-29 17:26] VITALS: BP 146/92
[2025-09-29 20:44] VITALS: BP 146/72
[2025-09-29 20:45] VITALS: BMI 22.6
[2025-09-29] MEDS: NSS 1000 IV (20:54)
[2025-09-29] MEDS: ZOFRAN 4 MG IV (20:58)
[2025-09-29 21:00] VITALS: BP 131/77
[2025-09-29 21:02] LABS: Hematocrit 41.2 % (39.0-52.0); Hemoglobin 14.5 g/dL (13.0-18.0); Mean Corp Hgb Conc. 35.2 g/dL (33.0-37.0); Mean Corpuscular Volume 88.8 fL (80.0-94.0); Nucleated Red Blood Cells % 0 % (-); Platelet Count 214 10^3/uL (130-400); Red Cell Dist. Width 12.6 % (11.5-14.5)
[2025-09-29 21:16] LABS: ALT (SGPT) 30 U/L (0-50); AST (SGOT) 33 U/L (17-59); Albumin 4.7 g/dl (3.5-5.0); Alkaline Phosphatase 72 U/L (38-126); Blood Urea Nitrogen 23 mg/dl (9-20); Calcium 10.4 mg/dl (8.4-10.2); Carbon Dioxide 26 mmol/L (22-30); Chloride 101 mmol/L (98-107); Estimated Creatinine Clearance 55 ml/min; Glucose 98 mg/dl (70-99); Lipase 127 U/L (23-300); Magnesium 1.9 mg/dl (1.6-2.3); Potassium 4.4 mmol/L (3.5-5.1); Sodium 136 mmol/L (135-145); Total Protein 7.3 g/dl (6.3-8.2); eGFR > 60.00
--- NOTE | 2025-09-29 21:22 | ED.GENMED ---
History of Present Illness
General
Chief Complaint: Abdominal Symptoms
Source: patient, records and spouse
Exam Limitations: none
Time Seen by Provider: 09/29/25 20:20
Nursing documentation reviewed up to this point in time: agreed with
History of Present Illness
History of Present Illness:
80-year-old male with a past medical history of hypertension, hyperlipidemia, CAD status post stents, atrial fibrillation who presents to the emergency room for evaluation of chest discomfort, nausea/vomiting/diarrhea. Patient is in the midst of a
colonoscopy prep�he was scheduled for colonoscopy for cancer surveillance by Dr. Ryan. Last night he began the prep by taking 1 glass of MiraLAX and 4 Dulcolax; this morning was supposed to take the rest of the prep throughout the day. He says
that shortly after taking medications last night he began having burning discomfort in his chest which she describes as heartburn. He reports he had significant associated belching and ultimately ended up vomiting. He has had multiple episodes of
vomiting throughout the day since; earlier today was also having diarrhea although this seems to have improved. He did not continue the prep today, discussed with his GI doctor and given continued vomiting and chest discomfort was referred to the
ER. He says burning chest discomfort has improved. He says that he did take some Tums that seem to help. He says nausea has improved as well. He denies any associated abdominal pain. He denies any other acute complaints. He says that he had
colonoscopy he thinks in 2018 while he lived in [place] but he did not take MiraLAX for the prep; he cannot recall having any issues with colonoscopy prep in the past.
Past History
Past History
ED Past Medical History: Arrthythmia (a fib), CAD, Cancer (Basal cell), HTN and SC
ED Past Surgical History: Appendectomy, Cardiac (Stents X 2 2009, stent LAD 2022), Orthopedic (Right rotator cuff, Back surgery, ), Tonsilectomy, Urological (Spermatocele) and Other (right femural artery repair)
Social History
Tobacco: Former smoker
Alcohol: None
Personal:
Living: with family
Employment: Retired
Review of Systems
Review of Systems
All Other Systems: ROS reviewed and negative except as documented in HPI and ROS
Constitutional: Denies fever
Respiratory: Denies trouble breathing
Cardiac: Reports chest pain (Heartburn/burning)
ABD/GI: Reports nausea, vomiting and diarrhea; Denies abdominal pain
: Denies flank pain
Musculoskeletal: Denies neck pain or back pain
Neurological: Denies headache
Phy Exam
Physical Exam
Physical Exam:
General: Awake, alert, oriented x3; no acute distress
Head: Normocephalic, atraumatic
Eyes: Conjunctiva normal, sclera anicteric
Throat: Airway intact, somewhat dry mucous membranes
Neck: Trachea midline, supple without meningismus
Lungs: Clear to auscultation bilaterally, no wheezing, rales, rhonchi
Heart: Mild tachycardia with regular rhythm, no murmurs, gallops, or rubs
Abd: Soft, non distended, nontender
Neuro: Grossly intact
Skin: no rash in area of concern
Extremities: No edema in extremities, equal pulses in all extremities
Scores
Heart Failure Risk
Heart Failure Risk Score: Not Applicable
Heart Score for Chest Pain Patients
STEMI patient?: Not applicable
Withdrawal Assessment of Alcohol
Withdrawal Assessment Completed?: Not applicable
Course
Orders/Labs/Results
Orders:
Orders
09/29/25 17:29
EKG [Electrocardiogram (*1)] Urgent
Reason for Study: Abdominal Pain
EKG- Treatment ONCE
09/29/25 20:41
Ondansetron Injectable [Zofran] 4 mg IV NOW STA
09/29/25 20:42
0.9% Sodium Chloride 1000 ml [Nss] 1,000 ml IV BOLUS
09/29/25 20:51
Complete Blood Count/With Diff Urgent
Comprehensive Metabolic Panel Urgent
Lipase Urgent
Magnesium Urgent
Troponin I Urgent
Abnormal Lab Results
09/29/25
20:51
RBC 4.64 L 10^6/uL
(4.70-6.10)
MCH 31.3 H pg
(27.0-31.0)
Absolute Neuts (auto) 8.0 H 10^3/uL
(1.4-6.5)
Absolute Lymphs (auto) 0.9 L 10^3/uL
(1.2-3.4)
Absolute Monos (auto) 0.9 H 10^3/uL
(0.1-0.6)
Neutrophils % 80.8 H %
(42.2-75.2)
Lymphocytes % 9.4 L %
(20.5-51.1)
BUN 23 H mg/dl
(9-20)
Calcium 10.4 H mg/dl
(8.4-10.2)
Troponin I 0.042 H* ng/ml
09/29/25 20:51
09/29/25 20:51
Vital Signs
Initial and Last Documented VS:
Initial Vital Signs
Temp Pulse Resp BP Pulse Ox
36.6 C 100 20 146/92 99
09/29/25 17:26 09/29/25 17:26 09/29/25 17:26 09/29/25 17:26 09/29/25 17:26
Last Documented Vital Signs
Temp Pulse Resp BP Pulse Ox
36.6 C 100 20 146/72 98
09/29/25 17:26 09/29/25 17:26 09/29/25 17:26 09/29/25 20:44 09/29/25 21:24
MDM/Problems Addressed
Differential Diagnosis Includes:
Medication effect/intolerance, GERD/gastritis, less likely anginal equivalent; nothing to suggest bowel obstruction
MDM/Problems Addressed:
80-year-old male with a past medical history as noted presents to the ER for evaluation of burning chest discomfort that has improved, belching, nausea/vomiting/diarrhea throughout the day in the midst of colonoscopy prep. His symptoms are
generally improving but still feels mildly nauseated. Mildly tachycardic but otherwise normal vitals. Physical exam as above. Will plan to send off basic labs to rule out electrolyte derangements. Check EKG and troponin given his cardiac history
although very low suspicion that chest discomfort is anginal/ischemic. Will treat symptomatically. At this point no indication for abdominal imaging with improving symptoms, nontender abdomen. Suspect likely this was adverse effect of bowel prep.
Labs reviewed: CBC and CMP show no clinically significant abnormalities. Patient troponin is slightly elevated at 0.042; low suspicion that chest pain is ischemic, but given his history will need to trend troponin out. Clinically patient is
feeling much better. He is chest pain-free. Discussed case with hospitalist for admission.
Chronic conditions affecting care:
CAD
*Pulse Oximetry
SaO2: 98
Oxygen Mode of Delivery: Room air
Patient hypoxic: no (98%)
*EKG
Interpreted by ED Provider?: Yes
Heart Rate: 93
Rate: normal
Rhythm: sinus and PAC's
[place]: normal axis
Interval: normal interval
QRS Pattern: normal QRS
Ischemia: non-specific ST changes
*Critical Care Note
Total Time (30-74mins, 75-104mins- exclusive of procedures): Not Applicable
Data Reviewed
Review of Other/Old Records Reveals: Labs and Records
Source: patient, records and spouse
Patient Management
Discussion with other providers: Hospitalist (Discussed with hospitalist)
Escalation/DeEscalation of care consider admission/obs:
Admission indicated
ED Attending Note
-
Portions of this chart may have been created with voice recognition software.� Occasional wrong word or��sound alike� substitutions may have occurred due to the inherent limitations of voice recognition software.
Discharge Plan
Departure
Patient Disposition: Admit
Date of Disposition: 09/29/25
Time of Disposition: 22:37
Admit to doctor: Sammie
Presentation/result/management discussed w/ accepting MD/DO: Hospitalist
Discharge Problem:
Chest pain, Nausea & vomiting
Prescriptions:
No Action
magnesium oxide 500 MG capsule
500 mg PO DAILY
cholecalciferol (vitamin D3) 2,000 UNITS tablet
4,000 unit PO DAILY
Xarelto 20 MG tablet
20 mg PO HS
multivitamin Tablet
1 tab PO DAILY
cyanocobalamin (vitamin B-12) [Vitamin B-12] 1,000 mcg Tablet
1,000 mcg PO DAILY
lysine
1 tab PO DAILY
diphenhydramine HCl [Benadryl] 25 mg Capsule
25 mg PO HS
Patient Comments:
PRN for sleep
ezetimibe [Zetia] 10 mg tablet
10 mg PO DAILY Qty: 30 11RF
aspirin 81 mg Tablet,Delayed Release (Dr/Ec)
81 mg PO HS
metoprolol succinate 25 mg Tablet Extended Release 24 Hr
25 mg PO HS Qty: 30 0RF
Referrals:
Sunday Baker MD [Family Provider, Family Practice]
Interventions
Interventions:
*General Assessment Last Done: 09/29/25 17:26
*Neglect/Abuse Screening Last Done: 09/29/25 17:26
*ED COVID-19 Vaccine History Last Done: 09/29/25 20:45
*ED Influenza Vaccine History Last Done: 09/29/25 20:45
[facility] Fall Risk Assessment Tool Last Done: 09/29/25 20:45
*Risk Screen - Suicide (C-SSRS) Last Done: 09/29/25 17:26
UF-Fukgns-Osjqgymnsb Assessment Last Done: 09/29/25 20:45
Discharge Date and Time
Print Language: THAI
[2025-09-29 21:37] LABS: Troponin I 0.042 ng/ml
[2025-09-29 22:00] VITALS: BP 130/68
--- NOTE | 2025-09-29 22:49 | W.PN.UPDATE ---
Update Note
Progress Note Update
Patient seen in conjunction with nurse practitioner, I agree with the findings and skeptical. I concur with assessment and plan unless otherwise stated.
Patient is a 80-year-old female with past medical history of CAD status post tenting, atrial fibrillation on anticoagulation, hypertension, hyperlipidemia presenting to the emergency department for chest discomfort, nausea vomiting and diarrhea.
Patient had a colonoscopy prep scheduled for surveillance. He began prep with laxative and was supposed to take the prep throughout the day.
With this prep he describes heartburn, belching, multiple episodes of vomiting, he stopped the prep and discussed with his GI doctor who recommended referral to ED. Currently his chest discomfort has improved. Nausea has also improved. Patient
reported that he has had limited p.o. in the last 2 days. He also has diarrhea secondary to the prep. He felt lightheaded when he stood up from a supine position and started walking and then this resolved. After IV fluids he is calm symptoms are
completely resolved.
Denies palpitations. Denies lightheadedness or dizziness.
In the ED blood pressure was stable at 146/70 with a pulse of 100 and oxygen saturation of 98% on room air. ECG shows normal sinus urinary. Opponent was elevated at 0.042.
CBC was unremarked. Electrolyte BUN/creatinine were normal.
Patient referred for admission given elevated troponin and history of CAD.
Assessment and plan
chest pain�suspect chest pain secondary to vomiting in the setting of the prep however cannot rule out acute coronary process. Currently chest pain-free. Troponin was 0.04 with repeat pending
� Admit to telemetry observation
� Trend troponins, if second troponin rising rapidly we will start heparin drip
� Will give aspirin for now
� Continue metoprolol succinate and zetia
� Antiemetics, pain control
� No further prep for now, cardiology consultation in a.m.
DVT prophylaxis�on Xarelto
CODE STATUS�full code
[2025-09-29 23:00] VITALS: BP 134/78
--- NOTE | 2025-09-29 23:03 | HPS.HSE ---
Family Physician
-
Family Physician: Sunday Baker MD
Chief Complaint
-
Chest Burning and Vomiting
History of Present Illness
Patient is a 80 y/o male past medical history of coronary artery disease, atrial fibrillation, hypertension, hyperlipidemia and osteoarthritis who presents with chest burning and vomiting. Patient reports he drank MiraLAX last night as the start of
a bowel prep. Afterwards he developed reflux and vomiting. He slept last night and felt better in the morning. He took his Dulcolax tablets and later he started to drink the MiraLax bowel prep again which resulted in recurrent burning chest
discomfort and vomiting. He reports while in triage he did have an episode of lightheadedness, but he denies any shortness of breath.
Medical History
Past Medical History
Past Medical History: Reports Other
Additional Past Medical History:
Coronary Artery Disease s/p Stents
Paroxysmal Atrial Fibrillation
Essential Hypertension
Hyperlipidemia
Osteoarthritis
Past Surgical History: Reports Other
Additional Past Surgical History:
Cardiac Stent
PVI
Rotator Cuff
Right Femoral Artery Repair
Back Surgery
Spermatocele
Appendectomy
Tonsillectomy
Social History
Tobacco: Former Smoker (Quit about 50 years ago)
Alcohol: None
Drug: Marijuana (Daily - Patient uses for pain)
Family History
Family History: Not pertinent
Allergies / Home Medications
Allergies reflects when Allergies were last updated in [facility].
Home Medications with original date entered in [facility]
Allergy/Medication List:
Allergies
Allergy/AdvReac Type Severity Reaction Status Date / Time
clopidogrel (From Plavix) Allergy Unknown Verified 25 17:25
erythromycin base Allergy Unknown Verified 09/29/25 17:25
Penicillins Allergy Unknown Verified 09/29/25 17:25
Home Medications
cholecalciferol (vitamin D3) 50 mcg (2,000 unit) tablet 4,000 unit PO DAILY Supplement 07/09/18
magnesium oxide 500 mg capsule 500 mg PO DAILY Supplement 07/09/18
rivaroxaban 20 mg tablet (Xarelto) 20 mg PO HS Blood Clot Prevention/Tx 07/09/18
cyanocobalamin (vitamin B-12) 1,000 mcg tablet (Vitamin B-12) 1,000 mcg PO DAILY Supplement 07/23/23
diphenhydramine HCl 25 mg capsule (Benadryl) 25 mg PO HS Sleep 07/23/23
lysine 1 tab PO DAILY Supplement 07/23/23
multivitamin 1 tab PO DAILY Supplement 07/23/23
ezetimibe 10 mg tablet (Zetia) 10 mg PO DAILY High cholesterol #30 tabs 07/26/23
aspirin 81 mg tablet,delayed release 81 mg PO HS 12/12/24
amlodipine 5 mg tablet 5 mg PO DAILY 09/29/25
Review of Systems
-
A 12 point ROS was completed and negative except as noted: Yes
Constitutional: Denies Fever
Respiratory: Denies Cough or Trouble Breathing
Cardiac: Reports Chest Pain; Denies Palpitations
Abdomen/GI: Reports Nausea and Vomiting; Denies Abdominal Pain
Physical Exam
Vital Signs
Vital Signs
Temp Pulse Resp BP Pulse Ox
97.8 F 100 20 146/72 98
09/29/25 17:26 09/29/25 17:26 09/29/25 17:26 09/29/25 20:44 09/29/25 21:24
Physical Exam
General: Comfortable and Conversant
HEENT: Anicteric and Moist mucous membranes
Respiratory: Clear and Non Labored Respirations
Cardiac: S1/S2 and Regular Rhythm
GI: Soft and Non Tender
Rectal: Deferred by Provider
Musculoskeletal: No Clubbing, No Cyanosis and No Edema
Skin: Warm and Dry
Neuro: Awake, Alert, Oriented and Nonfocal/grossly intact
Psych: Calm
Laboratory Results
-
09/29/25 20:51
09/29/25 20:51
Laboratory Results
Total Bilirubin 1.1 mg/dl (0.2-1.3) 09/29/25 20:51
AST 33 U/L (17-59) 09/29/25 20:51
ALT 30 U/L (0-50) 09/29/25 20:51
Alkaline Phosphatase 72 U/L (38-126) 09/29/25 20:51
Troponin I 0.042 ng/ml H* 09/29/25 20:51
Lipase 127 U/L (23-300) 09/29/25 20:51
Data Reviewed
-
Lab Data: Labs Reviewed by me
Impression/Plan
-
Burning Chest Discomfort and Vomiting, suspect GI related however initial troponin is mildly elevated
-Continue to trend troponin - If trending upward would start on heparin drip
-Continue aspirin
-Continue Protonix PO Daily
Paroxysmal Atrial Fibrillation
-Resume Xarelto if patient is not started on heparin
Essential Hypertension
-Continue amlodipine
Hyperlipidemia
-Continue ezetimibe
DVT proph: Xarelto
Code Status: Full Code
[2025-09-29] MEDS: LOW STRENGTH ASPIRIN 81 MG PO (23:28)
[2025-09-30 00:30] VITALS: BP 140/75; BMI 22.4
[2025-09-30 00:47] VITALS: BMI 22.4
[2025-09-30 00:59] LABS: Troponin I 0.035 ng/ml
[2025-09-30 03:12] VITALS: BP 120/93
[2025-09-30 06:39] LABS: Hematocrit 36.8 % (39.0-52.0); Hemoglobin 12.8 g/dL (13.0-18.0); Mean Corp Hgb Conc. 34.8 g/dL (33.0-37.0); Mean Corpuscular Volume 87.8 fL (80.0-94.0); Platelet Count 196 10^3/uL (130-400); Red Cell Dist. Width 12.5 % (11.5-14.5)
[2025-09-30 07:00] VITALS: BP 116/63
[2025-09-30 07:00] LABS: Troponin I 0.021 ng/ml
[2025-09-30 07:06] LABS: Blood Urea Nitrogen 27 mg/dl (9-20); Calcium 9.2 mg/dl (8.4-10.2); Carbon Dioxide 22 mmol/L (22-30); Chloride 104 mmol/L (98-107); Estimated Creatinine Clearance 60 ml/min; Glucose 67 mg/dl (70-99); HDL Cholesterol 37 mg/dl; LDL Cholesterol, Calculated 82 mg/dl; Magnesium 1.8 mg/dl (1.6-2.3); Potassium 4.0 mmol/L (3.5-5.1); Sodium 135 mmol/L (135-145); Very Low Density Lipoprotein 15 mg/dl (0-30); eGFR > 60.00
--- NOTE | 2025-09-30 07:30 | CON.CAR ---
Addendum entered and electronically signed by Delilah Layne MD 09/30/25 12:51:
I saw and examined the patient.
The Investigations Director's note was reviewed and I agree with the note.
Comment: Briefly, Mr. Herman is a 80-year-old gentleman with past medical history of hypertension, hyperlipidemia, paroxysmal atrial fibrillation on chronic Xarelto therapy, last dose Sunday as he was preparing for a colonoscopy which was
originally scheduled for today. He tells me specifically that he was undergoing recommended prep and for the first time he utilize MiraLAX and about an hour after taking the MiraLAX he started experiencing a lot of belching and chest burning which
he thought was heartburn followed by vomiting. The next day he had more MiraLAX and Dulcolax which triggered nausea followed by vomiting and very minimal heartburn, nothing similar to Sunday night. Since then he has not had any further chest
discomfort. Given recurrent vomiting he did call his installment account checker who directed him to the emergency department. He tells me that there is 0 exertional component to his symptoms. His heart burning and chest burning is very different from
prior episodes of chest discomfort that he has experienced with his cardiac events and needing prior PCI's. He is a very good historian and tells me he pays a very specific attention to cardiac symptoms and he has not experience any of that
recently or over the last 2 days. He denies any shortness of breath. No lightheadedness/dizziness or osmin syncope. No orthopnea or PND. His initial troponin was minimally elevated at 0.04 and downtrending. ECG with some nonspecific ST-T wave
changes.
Vital signs and lab work reviewed. On exam patient is well-appearing, no acute distress, awake, alert and oriented x 3, regular rate, normal S1 and S2, no murmurs, rubs or gallops, abdomen is soft, nontender, nondistended with active bowel sounds,
lungs are clear to auscultation bilaterally, warm extremities without significant edema
Recommendations:
1. Patient is a very good historian and gives a very clear history and a trigger for his heartburn symptoms which is the colonoscopy prep with a history that is pretty consistent with noncardiac chest discomfort. I do not think his mild troponin
elevation are due to a type I NSTEMI as I am not concerned that the symptoms are cardiac in nature. Defer to GI in terms of managing noncardiac heartburn and deciding on future plans for colonoscopy. Along the same lines, defer to GI in regards to
when it may be safe to resume his home Xarelto for history of paroxysmal atrial fibrillation.
2. From a cardiac standpoint have also personally reviewed his echocardiogram that was completed this morning which shows hyperdynamic LV systolic function with no regional wall motion abnormalities and no significant valvular abnormalities.
3. In the setting with history consistent with noncardiac chest pain and a completely normal echocardiogram and minimal tropes which are downtrending, I do not feel like a ischemic workup is warranted inpatient. I did educate the patient in
regards to keeping a very close eye on his symptoms and if there is any recurrent symptoms especially with an exertional component we would have a very low threshold for further workup. We will also work on getting him set up for a follow-up
cardiology appointment in the next 2 weeks. He knows to call us sooner with any new or worsening symptoms.
Discussed all of the above with primary team.
.
Delilah Layne MD, [facility], [facility]
Original Note:
Consultation
Consultation Request
Date/Time Consultation Requested: 09/30/2025 at 0034
Date/Time Consultation Performed: 09/30/2025 at 0810
Requesting Provider: Dr. Silva
Performing Provider: Dr. Layne
Reason for Consultation: Chest pain
Medical History
-
History of Present Illness:
Patient came to the ER last night with a burning chest pain and elevated troponin prompting admission, cardiology is now consulted. Patient was last seen by Dr. South in the office on 05/08/2025 and at that time was feeling well, but was relatively
bradycardic and metoprolol was stopped. Patient reports he was feeling well in the interim and was signed up for colonoscopy to be performed on 09/30/2025. Patient started the preparation on Sunday night which included drinking MiraLAX and he
reported chest burning and belching shortly after taking the MiraLAX. The next day, Sunday, he had more MiraLAX and Dulcolax and felt more chest burning and nausea followed by some vomiting. Patient was unable to complete the colonoscopy prep and
called his GI doctor who recommended he be evaluated in the emergency room for the vomiting and chest burning which was unexpected. In the ER his initial troponin was 0.04 and ECG with nonspecific lateral ST changes. Patient was pain-free on
admission and next troponin trended down. Patient denies any recurrent pain overnight. Overall the symptoms are very different from the pain he had with his previous LAD PCI and NSTEMI. Initial LAD PCI was when he was living in [place] in 2009
and describes exertional chest pain while walking up the hill prompting ER evaluation and eventual LAD PCI. Then in 2022 he was living locally and was seen in our ER for an episode of chest pain and following serially normal troponin levels and ECG
he was discharged, but had recurrent symptoms walking to his car and returned immediately to the ER prompting admission and cardiac cath that showed an area of in-stent restenosis in his mid LAD. Previous ACS has always presented as exertional
chest pain and the patient specifically denies any exertional chest pain recently. Symptoms Sunday night and yesterday were described as a burning sensation associated with belching.
PMH:
CAD
s/p LAD PCI in [place] 2009
s/p 2.5 mm Xience FLORA to the mid LAD for an area of in-stent restenosis 07/25/2023
Hyperlipidemia not chronically on a statin due to myalgias, patient not interested in PCSK9 therapies
HTN
Paroxysmal A-fib
Chronic Xarelto OAC
Past Medical History
Past Medical History: Other (In HPI)
Past Surgical History: Appendectomy, Brain (PVI 2017, LAD PCI in [place] 2009, redo LAD PCI for in-stent restenosis 2022) and Orthopedic
Social History
Tobacco: Former Smoker
Alcohol: None
Drug: None
Personal: Single
Living: Alone
Family History
Family History: CAD and Diabetes
Allergies / Home Medications
Allergy/AdvReac Type Severity Reaction Status Date / Time
clopidogrel (From Plavix) Allergy Unknown Verified 09/29/25 17:25
erythromycin base Allergy Unknown Verified 09/29/25 17:25
Penicillins Allergy Unknown Verified 09/29/25 17:25
�Medication �Instructions �Recorded �Confirmed �Type
cholecalciferol (vitamin D3) 50 4,000 unit PO DAILY Supplement 07/09/18 09/29/25 History
mcg (2,000 unit) tablet
magnesium oxide 500 mg capsule 500 mg PO DAILY Supplement 07/09/18 09/29/25 History
rivaroxaban 20 mg tablet (Xarelto) 20 mg PO HS Blood Clot 07/09/18 09/29/25 History
Prevention/Tx
cyanocobalamin (vitamin B-12) 1,000 mcg PO DAILY Supplement 07/23/23 09/29/25 History
1,000 mcg tablet (Vitamin B-12)
diphenhydramine HCl 25 mg capsule 25 mg PO HS Sleep 07/23/23 09/29/25 History
(Benadryl)
lysine 1 tab PO DAILY Supplement 07/23/23 09/29/25 History
multivitamin 1 tab PO DAILY Supplement 07/23/23 09/29/25 History
ezetimibe 10 mg tablet (Zetia) 10 mg PO DAILY High cholesterol 07/26/23 09/29/25 Rx
#30 tabs
aspirin 81 mg tablet,delayed 81 mg PO HS 12/12/24 09/29/25 History
release
amlodipine 5 mg tablet 5 mg PO DAILY 09/29/25 09/29/25 History
Review of Systems
-
History Source: Patient
All other systems: Negative unless noted
Physical Exam
Vital Signs
Temp Pulse Resp BP Pulse Ox
98.6 F 77 17 120/93 97
09/30/25 03:12 09/30/25 03:12 09/30/25 03:12 09/30/25 03:12 09/30/25 03:12
GEN: NAD, AAO x 3
HEENT: EOMI
LUNGS: RA CTA B/L, no wheeze or rales
CV: SR on telemetry. Reg, S1/S2, no murmur
ABD: ND
EXT: No edema B/L LE
NEURO: Gross non-focal
SKIN: No rash
Lab Results
09/30/25 06:30
09/30/25 06:30
Troponin I 0.021 ng/ml D 09/30/25 06:30
Impression / Plan
-
PCP: Dr. Baker
Cardiology: Dr. TRICIA South
Impression:
Admitted with chest pain and elevated troponin 09/29/2025
Chest pain
Elevated troponin
CAD
s/p LAD PCI in 2009
s/p 2.5 mm Xience FLORA to the mid LAD for an area of in-stent restenosis 07/25/2023
Hyperlipidemia not chronically on a statin due to myalgias, patient not interested in PCSK9 therapies
HTN
Paroxysmal A-fib
Chronic Xarelto OAC
Echo 11/12/2023: EF 65%, normal LV size and function, no significant valve disease
Echo 09/30/2025: EF 65 to 70%, normal RV size and function, no significant valvular abnormalities, no pericardial effusion, unchanged from echo 11/12/2023
Plan:
-Patient came to the ER last night with a burning chest pain and elevated troponin prompting admission, cardiology is now consulted. Patient was last seen by Dr. South in the office on 05/08/2025 and at that time was feeling well, but was relatively
bradycardic and metoprolol was stopped. Patient reports he was feeling well in the interim and was signed up for colonoscopy to be performed on 09/30/2025. Patient started the preparation on Sunday night which included drinking MiraLAX and he
reported chest burning and belching shortly after taking the MiraLAX. The next day, Krysta, he had more MiraLAX and Dulcolax and felt more chest burning and nausea followed by some vomiting. Patient was unable to complete the colonoscopy prep and
called his GI doctor who recommended he be evaluated in the emergency room for the vomiting and chest burning which was unexpected. In the ER his initial troponin was 0.04 and ECG with nonspecific lateral ST changes. Patient was pain-free on
admission and next troponin trended down. Patient denies any recurrent pain overnight. Overall the symptoms are very different from the pain he had with his previous LAD PCI and NSTEMI. Initial LAD PCI was when he was living in [place] in 2009
and describes exertional chest pain while walking up the hill prompting ER evaluation and eventual LAD PCI. Then in 2022 he was living locally and was seen in our ER for an episode of chest pain and following serially normal troponin levels and ECG
he was discharged, but had recurrent symptoms walking to his car and returned immediately to the ER prompting admission and cardiac cath that showed an area of in-stent restenosis in his mid LAD. Previous ACS has always presented as exertional
chest pain and the patient specifically denies any exertional chest pain recently. Symptoms Sunday night and yesterday were described as a burning sensation associated with belching.
-ECG reviewed by me is SR with nonspecific lateral ST changes
-Initial troponin 0.04 and then trending down to 0.035
-Echocardiogram performed earlier this morning and then reviewed and summarized above by me shows preserved EF without WMA.
-Patient's current symptoms are different from his previous ACS symptoms. Initial troponin was 0.04 and trending down thereafter. ECG with nonspecific changes and repeat ECG is pending. All symptoms reviewed with the patient and is currently no
indication for cardiac catheterization, we talked about consideration for inpatient stress test which we could perform today, the patient is not interested and wishes to be discharged to home. Will arrange for outpatient cardiology follow-up in the
next 1 to 2 weeks.
-Stressed to patient that if he has recurrent chest pain that is more in line with his previous angina that he should return to the ER immediately.
-LDL is 82 which is suboptimal. Patient reports recurrent myalgias with statin therapy and is only on Zetia 10 mg daily. Patient is not interested in PCSK9 therapies.
-Reinitiation of Xarelto therapy to be determined by GI. There are no cardiac contraindications to restarting OAC. Patient reports that he is no longer interested in having colonoscopy.
-Outpatient dose of amlodipine 5 mg daily should be continued
-TT communication from me with hospitalist attending outlining cardiology plans for outpatient follow-up and that patient is stable for discharge from a cardiac standpoint.
[2025-09-30 08:51] LABS: Glycohemoglobin (HgbA1c) 5.6 % (4.0-5.9)
[2025-09-30 08:59] LABS: APTT 26.3 Sec (23.4-35.0)
[2025-09-30] MEDS: ZETIA 10 MG PO (09:20)
[2025-09-30] MEDS: NORVASC 5 MG PO (09:20)
[2025-09-30] MEDS: PROTONIX 40 MG PO (09:20)
[2025-09-30 11:00] VITALS: BP 108/61
[2025-09-30 12:59] LABS: Troponin I 0.015 ng/ml
--- NOTE | 2025-09-30 12:59 | W.DCSUMMARY ---
Discharge Summary
Discharge Data
Date of Admission: 09/29/25
Date of Discharge: 09/30/25
-
Pending Results: No
Hospital Course
Primary diagnosis:
Chest discomfort in the setting of nausea vomiting diarrhea with colonoscopy prep.
Indeterminate troponins
Secondary diagnosis:
Coronary artery disease status post prior PCI and LAD stenting
Essential hypertension
Paroxysmal fibrillation on Xarelto
Hospital course:
Patient was getting colonoscopy prep. With the prep he started to develop heartburn, belching, multiple episodes of vomiting, loose stools. He also developed some chest discomfort with that. He was seen in the ED his symptoms calm down with IV
fluids in the ER but he had troponins with peak of 0.[address]-T changes. In view of CAD and prior stenting he was brought in for cardiac evaluation. He was seen by cardiology today. He had no further symptoms. His troponins
trended down from peak of 0.04. He had an echo which showed normal EF and no wall motion abnormality. Cardiology recommended inpatient stress test but he declined and would follow-up outpatient with cardiology. He has no further plans to get
colonoscopy. Xarelto was resumed.
Today patient is without any GI symptoms and is tolerating diet. Afebrile, pulse 83 regular, blood pressure 108/61. Chest was clear to auscultation. Heart sound S1 plus S2 regular. Abdomen was soft without tenderness.
Medically stable for discharge home today.
Consultants on board:
Cardiology-Delilah Constantino
Discharge Plan
-
Patient Disposition: Home (Routine Discharge)
Discharge Diagnosis/Procedures: Nausea, vomiting, loose stools with chest discomfort suspected secondary to colon prep. Indeterminate troponins; CAD with prior PCI and coronary stenting.
Diet: Low Cholesterol
Activity: As tolerated
Driving Restrictions: As prior to admission
Bathing Restrictions: None
Referrals:
Sunday Baker MD [Family Provider, Family Practice] - in less than 1 week
Nino South MD [Active, Cardiology]
Referral Note: You have an appt to see Dr. South's physician drafter assistant, Karla, at the [facility] on 10/14/25 at 8:20 AM. Please call [phone] if you need to reschedule.
Prescriptions:
Continued
magnesium oxide 500 MG capsule
500 mg PO DAILY
cholecalciferol (vitamin D3) 2,000 UNITS tablet
4,000 unit PO DAILY
Xarelto 20 MG tablet
20 mg PO HS
multivitamin Tablet
1 tab PO DAILY
cyanocobalamin (vitamin B-12) [Vitamin B-12] 1,000 mcg Tablet
1,000 mcg PO DAILY
lysine
1 tab PO DAILY
diphenhydramine HCl [Benadryl] 25 mg Capsule
25 mg PO HS
Patient Comments:
PRN for sleep
ezetimibe [Zetia] 10 mg tablet
10 mg PO DAILY Qty: 30 11RF
aspirin 81 mg Tablet,Delayed Release (Dr/Ec)
81 mg PO HS
amlodipine 5 mg tablet
5 mg PO DAILY
Discharge Orders:
Discharge Patient (As Directed); Ordered 09/30/25
Ordered By: Jeffy Silva
Discharge Date and Time
Print Language: SWEDISH
== END 2025-09-30 16:16 | disposition home or self-care (01) ==
LOC: 4 WEST ACU 23:14
PROVIDERS: Physician Assistant Medical; ADMITTING PHYSICIAN Internal Medicine; ATTENDING PHYSICIAN Internal Medicine; EMERGENCY PHYSICIAN Emergency Medicine; FAMILY PHYSICIAN Family Medicine; OTHER PHYSICIAN Internal Medicine Interventional Cardiology
DX: R11.2 Nausea with vomiting, unspecified (principal); R10.9 Unspecified abdominal pain; R19.7 Diarrhea, unspecified; R07.89 Other chest pain; I25.10 Atherosclerotic heart disease of native coronary artery without angina pectoris; E78.5 Hyperlipidemia, unspecified; I10 Essential (primary) hypertension; I48.0 Paroxysmal atrial fibrillation; R00.0 Tachycardia, unspecified; M19.90 Unspecified osteoarthritis, unspecified site; R79.89 Other specified abnormal findings of blood chemistry; K21.9 Gastro-esophageal reflux disease without esophagitis; R42 Dizziness and giddiness; F12.90 Cannabis use, unspecified, uncomplicated; I49.1 Atrial premature depolarization; I37.1 Nonrheumatic pulmonary valve insufficiency; I25.2 Old myocardial infarction; Z79.899 Other long term (current) drug therapy; Z90.89 Acquired absence of other organs; Z79.82 Long term (current) use of aspirin; Z79.01 Long term (current) use of anticoagulants; Z90.49 Acquired absence of other specified parts of digestive tract; Z87.891 Personal history of nicotine dependence; Z95.5 Presence of coronary angioplasty implant and graft; Z88.1 Allergy status to other antibiotic agents; Z88.0 Allergy status to penicillin; Z88.8 Allergy status to other drugs, medicaments and biological substances; Z83.3 Family history of diabetes mellitus; Z82.49 Family history of ischemic heart disease and other diseases of the circulatory system
CPT/HCPCS: 80048; 80053; 80061; 83036; 83690; 83735; 84484; 85025; 85027; 85730; 93005; 93306; 96361; 96374; 99284; G0378